=== PATIENT | male | born 1935 | race Caucasian/White ===

== ENCOUNTER → 2017-07-26 | Outpatient (CLI) | payer MEDICARE, BC ==
[~2017-07-26] MED LIST: ACETAMINOPHEN325 M1 PO; ACIDOPHILUS1 EAC3 PO; ACIDOPHILUS1 EAC4 PO; ACIDOPHILUS1 EACH PO; ACLOVATE TP; ADULT LOW DOSE81 MG PO; ALLOPURINOL 30300 M2 PO; AMARYL2 MG PO; AMIODARONE HCL100 MG PO; AMIODARONE HCL400 MG PO; AMLODIPINE BESYL5 MG PO; AMOXICILLIN 50500 MG PO; AMPICILLIN TRI500 MG PO; APAP500 PO; AUGMENTIN 875-1 EACH PO; BACTRIM DS TAB1 EACH PO; BENADRYL25 MG PO; BISAC-EVAC10 MG RC; BISACODYL SUPP10 MG RECTAL; CARDIZEM CD240 MG PO; CEFEPIME HCL2 GM IV; CEFTIN 250 MG250 MG PO; CEFUROXIME500 MG PO; CHILDREN'S ASPI81 M1 PO; CIPRO250 MG PO; CLONIDINE0.1 PO; CLOTRIMAZOLE 1%15 G1 TOP; COLACE100 MG PO; CORDARONE200 MG PO; COUMADIN 1MG TAB1 M1 PO; COUMADIN 2 MG TA2 M1 PO; COUMADIN 3 MG TA3 M1 PO; COUMADIN 4 MG TA4 M1 PO; COUMADIN 5 MG TA5 M1 PO; COZAAR 50 MG TA50 M1 PO; COZAAR 50 MG TA50 M2 PO; COZAAR100 MG PO; DULCOLAX5 MG PO; DUONEB 2.5-0.5 M3 ML INH; FAMOTIDINE 20 M20 MG PO; FLOMAX0.4 MG PO; FLONASE 0.05%50 MCG NASAL; FLUSH IV; FORTAZ2 GM IV; FUROSEMIDE 40 M40 MG PO; HYDROCODONE-AP1 EAC6 PO; HYTRIN 2MG CAPSU2 M1 PO; HYTRIN 5 M5 MG/1 CAP PO; I-VITE PROTECT1 EACH PO; I-VITE TABLET1 EACH PO; IBUPROFEN 200200 M1 PO; IBUPROFEN 600600 M1 PO; JUVEN PACKET1 EACH PO; LEVEMIR SUBQ; LISINOPRIL5 MG PO; LOPRESSOR 50 MG50 M1 PO; LOTRIMIN ULTRA12 GM TOP; MILK OF MA2400 MG/10 PO; MINOCIN100 MG PO; MINOCYCLINE HC100 M2 PO; MIRALAX17 GM PO; MIRALAX255 GM PO; NORCO 5-325 TA1 EACH PO; NORVASC5 MG PO; NOVOLOG100 UNIT/1; NOVOLOG100 UNIT/1 SUBQ; NYAMYC15 GM TOP; NYSTATIN-TRIAMC15 G1 TP; OCUVITE ADULT1 EAC1 PO; OXYCODONE HCL5 M1 PO; PACERONE 200 M200 MG PO; PEPCID20 MG PO; PHENERGAN 25 MG25 M1 PO; PHENERGAN50 MG/1 M1 IM; PREDNISONE 20 M20 MG PO; PRESERVISION PO; PROSCAR 5MG TABL5 MG PO; REGLAN 5 MG TAB5 MG PO; RENO CAPS SOFTGE1 MG PO; ROCEPHIN 11 GM/1001 IV; SENOKOT-S TABL1 EACH PO; SILVADENE20 GM TP; TAMIFLU75 MG PO; TESSALON PERLE100 MG PO; THERAGRAN-M PR1 EAC1 PO; TOPROL XL100 MG PO; TRADJENTA5 MG; TUSSIN DM CLEA118 ML PO; TUSSIN DM COUG237 ML PO; TUSSIN MUC100 MG/5 M PO; TUSSIONEX PENNKI1 ML PO; TYLENOL325 MG PO; VANCO 1.251.25 GM/25 IVPB; VANCO1GM IV; VENELEX OINTMEN60 GM TOP; VITAMIN D1000 UNI1 PO; VITAMIN D31000 UNIT PO; VITAMIN E400 UNIT PO; VITAMINC500 PO; XARELTO20 MG PO; ZINC SULFATE 2220 M1 PO; ZOLOFT50 MG PO; ZOSYN 3/0.373.375 G3 IVPB; [UNRECOGNIZED DRUG - OTHER] TOP; [UNRECOGNIZED DRUG - OTHER] TOP; [UNRECOGNIZED DRUG - REMARK] TOP
--- NOTE | 2017-07-27 09:12 | CON ---
[address] [address] CONSULTATION Name: DORIANKIMBERIVON PABLO Room: [facility] RADHA Owusu#: [id number] Admission: 07/26/17 Attend Phys: Donte Ruiz, Discharge: Date of : 36 Report #: [id number] THIS REPORT FOR: //name// CC: Joseph Ruiz DATE OF SERVICE: 07/26/2017 INFECTIOUS DISEASE CONSULTATION FOLLOWUP The patient is seen in the outpatient wound care center at [facility]. ATTENDING PHYSICIAN: Dr. Donte Ruiz. HISTORY OF PRESENT ILLNESS: The patient returns in followup ongoing issues of chronic severe venous stasis insufficiency ulcers involving the right lower extremity. These are circumferential, all intensive purposes. He has intermittently issues with secondary infections. He says there is a polymicrobial growth often with multiple resistant organisms, including Pseudomonas and most recently, he has been on a combination of Cipro and metronidazole for the last 3 weeks. Clinically, he has improved. He typically does not have significant amount of pain associated with it. This continues to be true. There is no particular odor. Post-debridement, the area is generally pretty clean. There are deep extending into the subcutaneous tissue. On questioning, he denies any fevers or chills. Appetite has been relatively stable. ASSESSMENT AND PLAN: Chronic venous stasis insufficiency ulcers. I did discuss with Dr. Ruiz. With his pattern, antibiotics seem to afford him some benefit and clinically with discontinuing, he often relapses; we will extend these. In the meantime, he is tolerating the combination at this point. It is notable he is on warfarin and this has been accounted for with frequent PT-INRs and adjusted accordingly. We will see him in 2 weeks. <ELECTRONICALLY SIGNED> By: Camilo Lorenzana MD 07/27/17 0912 1317 [id number] Lorenzana MD /nt
== END ==
LOC: M.WC 01:41
DX: E11.622 Type 2 diabetes mellitus with other skin ulcer (principal); L97.811 Non-pressure chronic ulcer of other part of right lower leg limited to breakdown of skin; E11.621 Type 2 diabetes mellitus with foot ulcer; L97.511 Non-pressure chronic ulcer of other part of right foot limited to breakdown of skin; L97.311 Non-pressure chronic ulcer of right ankle limited to breakdown of skin; E11.51 Type 2 diabetes mellitus with diabetic peripheral angiopathy without gangrene; E11.69 Type 2 diabetes mellitus with other specified complication; M86.8X7 Other osteomyelitis, ankle and foot; I87.2 Venous insufficiency (chronic) (peripheral); I89.0 Lymphedema, not elsewhere classified; I11.0 Hypertensive heart disease with heart failure; I50.20 Unspecified systolic (congestive) heart failure; K21.9 Gastro-esophageal reflux disease without esophagitis; I48.91 Unspecified atrial fibrillation; E66.01 Morbid (severe) obesity due to excess calories; Z68.42 Body mass index [BMI] 45.0-49.9, adult; Z89.512 Acquired absence of left leg below knee; Z86.718 Personal history of other venous thrombosis and embolism

== ENCOUNTER 2017-08-16 07:33 | Emergency (ER) | payer MEDICARE, BC ==
[~2017-08-16] VITALS: Ht 195.6 cm; Wt 158.8 kg
[~2017-08-16 07:33] MED LIST changes: -DUONEB 2.5-0.5 M3 ML INH; -FLOMAX0.4 MG PO; -IBUPROFEN 200200 M1 PO; -OCUVITE ADULT1 EAC1 PO; -OXYCODONE HCL5 M1 PO; -PACERONE 200 M200 MG PO; -PHENERGAN 25 MG25 M1 PO; -PREDNISONE 20 M20 MG PO; -REGLAN 5 MG TAB5 MG PO; -TAMIFLU75 MG PO; -TESSALON PERLE100 MG PO; -THERAGRAN-M PR1 EAC1 PO; -TRADJENTA5 MG; -TUSSIN DM COUG237 ML PO; -TUSSIN MUC100 MG/5 M PO; -VENELEX OINTMEN60 GM TOP; -XARELTO20 MG PO; -ZOLOFT50 MG PO; -[UNRECOGNIZED DRUG - OTHER] TOP
[2017-08-16] MEDS ORDERED: TAMIFLU75 MG PO (08:10)
[2017-08-16] MEDS ORDERED: VENELEX OINTMEN60 GM TOP (08:11)
[2017-08-16 08:15] VITALS: BP 130/56
== END 2017-08-16 08:15 | disposition home or self-care (01) ==
LOC: M.ERS 07:33
DX: S71.111A Laceration without foreign body, right thigh, initial encounter (principal); I10 Essential (primary) hypertension; E11.9 Type 2 diabetes mellitus without complications; E78.5 Hyperlipidemia, unspecified; E66.9 Obesity, unspecified; Z98.890 Other specified postprocedural states; Z88.1 Allergy status to other antibiotic agents; X58.XXXA Exposure to other specified factors, initial encounter; Y93.89 Activity, other specified; Y92.128 Other place in nursing home as the place of occurrence of the external cause; Y99.8 Other external cause status

== ENCOUNTER → 2017-08-16 | Outpatient (CLI) | payer MEDICARE, BC ==
[2017-08-16 10:41] LABS: ABSOLUTE BASOPHILS 0.1 thou/uL (0.0-0.2); ABSOLUTE EOSINOPHILS 0.2 thou/uL (0.0-0.7); ABSOLUTE LYMPHOCYTES 0.9 thou/uL (0.8-5.3); ABSOLUTE MONOCYTES 0.6 thou/uL (0.0-1.2); ABSOLUTE NEUTROPHILS 4.7 thou/uL (1.6-8.1); BASOPHILS 1.2 %; EOSINOPHILS 2.9 %; HEMATOCRIT 38.3 % (42.0-52.0); HEMOGLOBIN 12.8 gm/dL (14.0-18.0); LYMPHOCYTES 13.9 %; MCH 32.5 pg (26.0-34.0); MCHC 33.5 g/dL (28.0-37.0); MONOCYTES 8.7 %; MPV 8.7 fl. (7.2-11.1); NUCLEATED RBCS 0 /100WBC; PLATELET COUNT* 196 thou/uL (150-400); POLYS 73.3 %; RBC 3.95 mil/uL (4.50-6.00); RDW-CV 14.9 % (10.5-14.5); WBC 6.4 thou/uL (4.0-11.0)
[2017-08-16 10:48] LABS: CALCIUM 8.5 mg/dL (8.5-10.1); CREATININE 1.2 mg/dL (0.6-1.3); POTASSIUM 3.7 mmol/L (3.5-5.1)
[2017-08-16 10:52] LABS: INR 5.4
[2017-08-16 10:53] LABS: TOTAL BILIRUBIN 0.5 mg/dL (<0.1-1.0); TOTAL PROTEIN 7.1 g/dL (6.4-8.2)
--- NOTE | 2017-08-19 07:50 | CON ---
[address] [address] CONSULTATION Name: IVON SALINAS Room: [facility] RADHA Owusu#: [id number] Admission: 08/16/17 Attend Phys: Donte Ruiz, Discharge: Date of : 36 Report #: [id number] THIS REPORT FOR: //name// CC: Joseph Tim Devi [facility] DATE OF SERVICE: 08/16/2017 ATTENDING PHYSICIAN: Dr. Donte Ruiz. REASON FOR EVALUATION: Chronic ulceration involving the right lower extremities, multifactorial including venous stasis insufficiency, which is severe complicated by dermatitis. Wounds are chronic having been there for almost a year or so. He frequently gets secondary bacterial infections, has been on an extended course of antibiotics for polymicrobial etiology. He presents today having been through the Emergency Room, had developed a laceration of the posterior thigh apparently due to a sliding board. This was unable to be hemostased. On inspection, the wounds appear to be fairly bland. There is no particular odor. There is a mild inflammation at this point. Relatively speaking, it has improved from several visits. Venous stasis insufficiency ulcers. At this point, according to the facility, he is not on any antibiotics. I am concerned about excessive anticoagulation as I do not think this could be attributed to the antibiotics at this point. We will check labs. Continue local wound care, withhold antibiotics at this point. <ELECTRONICALLY SIGNED> By: Camilo Lorenzana MD 08/19/17 0750 1029 [id number] Josh Lorenzana MD /nt
== END ==
LOC: M.WC 01:36
PROVIDERS: Specialist
DX: I87.2 Venous insufficiency (chronic) (peripheral) (principal); L97.511 Non-pressure chronic ulcer of other part of right foot limited to breakdown of skin; L97.811 Non-pressure chronic ulcer of other part of right lower leg limited to breakdown of skin; E11.621 Type 2 diabetes mellitus with foot ulcer; E11.622 Type 2 diabetes mellitus with other skin ulcer; I89.0 Lymphedema, not elsewhere classified; E11.69 Type 2 diabetes mellitus with other specified complication; M86.9 Osteomyelitis, unspecified; M10.9 Gout, unspecified; I50.30 Unspecified diastolic (congestive) heart failure; K21.9 Gastro-esophageal reflux disease without esophagitis; I48.91 Unspecified atrial fibrillation; Z86.718 Personal history of other venous thrombosis and embolism; Z79.01 Long term (current) use of anticoagulants; Z89.512 Acquired absence of left leg below knee

== ENCOUNTER → 2017-08-30 | Outpatient (CLI) | payer MEDICARE, BC ==
[~2017-08-30] MED LIST changes: +DUONEB 2.5-0.5 M3 ML INH; +FLOMAX0.4 MG PO; +IBUPROFEN 200200 M1 PO; +OCUVITE ADULT1 EAC1 PO; +OXYCODONE HCL5 M1 PO; +PACERONE 200 M200 MG PO; +PHENERGAN 25 MG25 M1 PO; +PREDNISONE 20 M20 MG PO; +REGLAN 5 MG TAB5 MG PO; +TAMIFLU75 MG PO; +TESSALON PERLE100 MG PO; +THERAGRAN-M PR1 EAC1 PO; +TRADJENTA5 MG; +TUSSIN DM COUG237 ML PO; +TUSSIN MUC100 MG/5 M PO; +VENELEX OINTMEN60 GM TOP; +XARELTO20 MG PO; +ZOLOFT50 MG PO; +[UNRECOGNIZED DRUG - OTHER] TOP
--- NOTE | 2017-09-02 07:54 | CON ---
[address] [address] CONSULTATION Name: IVON SALINAS Room: [facility] RADHA Owusu#: [id number] Admission: 08/30/17 Attend Phys: Donte Ruiz, Discharge: Date of : 36 Report #: [id number] THIS REPORT FOR: //name// CC: Joseph Ruiz DATE OF SERVICE: 08/30/2017 ATTENDING PHYSICIAN: Dr. Donte Ruiz. HISTORY OF PRESENT ILLNESS: The patient returns today in followup, having ongoing issues with right lower extremity severe venous stasis insufficiency complicated by dermatitis and chronic ulcers that are multiple. He has been on antimicrobial therapy on and off for a number of years. Most recently, I saw him 2 weeks ago. He had a noted odor, had been placed on Augmentin and I continued that. We adjusted his dressing changes with our Resorb. He clinically has improved over the last couple of weeks in terms of how he feels. He denies any systemic illness at this point, his appetite is fair, is not having intolerance to the Augmentin. ASSESSMENT AND PLAN: Chronic venous insufficiency ulcers. We will continue the Augmentin. He seemingly has relapses or recurrences when the antibiotics are stopped. We will see him with his next visit with Dr. Ruiz. There was noticeable improvement and overall decrease in size of at least a couple of the ulcers. <ELECTRONICALLY SIGNED> By: Camilo Lorenzana MD 09/02/17 0754 1319 [id number] Lorenzana MD /pro
== END ==
LOC: M.WC 01:41
DX: E11.621 Type 2 diabetes mellitus with foot ulcer (principal); I87.2 Venous insufficiency (chronic) (peripheral); L97.511 Non-pressure chronic ulcer of other part of right foot limited to breakdown of skin; E11.622 Type 2 diabetes mellitus with other skin ulcer; L97.811 Non-pressure chronic ulcer of other part of right lower leg limited to breakdown of skin; E11.51 Type 2 diabetes mellitus with diabetic peripheral angiopathy without gangrene; E11.69 Type 2 diabetes mellitus with other specified complication; M86.8X7 Other osteomyelitis, ankle and foot; I11.0 Hypertensive heart disease with heart failure; I50.30 Unspecified diastolic (congestive) heart failure; K21.9 Gastro-esophageal reflux disease without esophagitis; I48.91 Unspecified atrial fibrillation; Z86.718 Personal history of other venous thrombosis and embolism; E66.01 Morbid (severe) obesity due to excess calories; Z68.42 Body mass index [BMI] 45.0-49.9, adult; Z89.512 Acquired absence of left leg below knee

== ENCOUNTER → 2017-09-27 | Outpatient (CLI) | payer MEDICARE, BC ==
--- NOTE | 2017-09-30 07:45 | CON ---
[address] [address] CONSULTATION Name: IVON SALINAS Room: [facility] RADHA Owusu#: [id number] Admission: 09/27/17 Attend Phys: Donte Ruiz, Discharge: Date of : 36 Report #: [id number] THIS REPORT FOR: //name// CC: Donte Ruiz DATE OF SERVICE: 09/27/2017 INFECTIOUS DISEASE CONSULTATION ATTENDING PHYSICIAN: Donte Ruiz DO HISTORY OF PRESENT ILLNESS: The patient returns in followup for longstanding issues with lower extremity venous stasis insufficiency ulcers complicated by chronic infection, has dermatitis, has been on multiple courses of systemic antibiotics as well as topical treatments. He generally drains excessive amounts. At this point, he is overall clinically similar. Denies any systemic illness. His appetite is okay. No fevers. Examination of the wounds appear to be quite macerated, some moderate to marked degree of debris and exudate, this is predebridement. ASSESSMENT AND PLAN: Chronic venous stasis insufficiency ulcers. We will continue the Augmentin as prescribed. Again, more of a chronic suppressive treatment modality. We will see him in about a 4-week basis. He will notify us if he has any clinical deterioration. <ELECTRONICALLY SIGNED> By: Camilo Lorenzana MD 09/30/17 0745 1325 [id number] Lorenzana MD /nt
== END ==
LOC: M.WC 01:32
DX: E11.621 Type 2 diabetes mellitus with foot ulcer (principal); L97.511 Non-pressure chronic ulcer of other part of right foot limited to breakdown of skin; I87.2 Venous insufficiency (chronic) (peripheral); E11.622 Type 2 diabetes mellitus with other skin ulcer; L97.811 Non-pressure chronic ulcer of other part of right lower leg limited to breakdown of skin; E11.51 Type 2 diabetes mellitus with diabetic peripheral angiopathy without gangrene; E11.69 Type 2 diabetes mellitus with other specified complication; M86.8X7 Other osteomyelitis, ankle and foot; E66.01 Morbid (severe) obesity due to excess calories; Z68.42 Body mass index [BMI] 45.0-49.9, adult; I11.0 Hypertensive heart disease with heart failure; I50.30 Unspecified diastolic (congestive) heart failure; K21.9 Gastro-esophageal reflux disease without esophagitis; I48.91 Unspecified atrial fibrillation; Z86.718 Personal history of other venous thrombosis and embolism; Z89.512 Acquired absence of left leg below knee

== ENCOUNTER → 2017-10-25 | Outpatient (CLI) | payer MEDICARE, BC ==
--- NOTE | 2017-10-28 07:43 | CON ---
[address] [address] CONSULTATION Name: IVON SALINAS Room: [facility] RAD[facility] Owusu#: [id number] Admission: 10/25/17 Attend Phys: Donte Ruiz, Discharge: Date of : 36 Report #: [id number] THIS REPORT FOR: //name// CC: Cristóbal Ruiz DATE OF SERVICE: 10/25/2017 INFECTIOUS DISEASE CONSULTATION FOLLOWUP ATTENDING PHYSICIAN: Donte Ruiz DO REASON FOR EVALUATION: Chronic ulcerations which are multiple due to severe venous stasis insufficiency of right lower extremity has been ongoing for several years. HISTORY OF PRESENT ILLNESS: The patient returns today in followup. Generally, he feels fine. Denies any systemic illness. Examination of the leg, however, it is clearly more swollen and more erythematous, particularly distally and weeping. It is notable that he is changing the dressing daily due to this excessive drainage. Examination of the wounds appear fairly clean actually, somewhat smaller a couple, otherwise are fairly stable shallower particularly on the medial aspect. It was notably odor per staff to remove the dressing. Dr. Ruiz to debride the wound. ASSESSMENT AND PLAN: Chronic venous stasis insufficiency ulcers, we asked Dr. Ruiz to go ahead and culture the site after debridement. We will continue Augmentin for the moment, adjust therapy as needed. He is critical to somehow obtain better compression. He was willing to perhaps elevate his leg during the day. He states typically using a wheelchair for the entirety of it with his legs down. 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 We will see him back at the next visit with Dr. Ruiz. <ELECTRONICALLY SIGNED> By: Camilo Lorenzana MD 10/28/17 0743 1445 [id number] Lorenzana MD /nt
== END ==
LOC: M.WC 02:08
DX: E11.622 Type 2 diabetes mellitus with other skin ulcer (principal); L97.511 Non-pressure chronic ulcer of other part of right foot limited to breakdown of skin; L97.811 Non-pressure chronic ulcer of other part of right lower leg limited to breakdown of skin; I87.2 Venous insufficiency (chronic) (peripheral); E11.51 Type 2 diabetes mellitus with diabetic peripheral angiopathy without gangrene; E11.69 Type 2 diabetes mellitus with other specified complication; M86.8X7 Other osteomyelitis, ankle and foot; I11.0 Hypertensive heart disease with heart failure; I50.30 Unspecified diastolic (congestive) heart failure; K21.9 Gastro-esophageal reflux disease without esophagitis; I48.91 Unspecified atrial fibrillation; Z86.718 Personal history of other venous thrombosis and embolism; Z89.512 Acquired absence of left leg below knee

== ENCOUNTER 2017-10-28 13:09 | Inpatient (IN) | payer MEDICARE, BC ==
[~2017-10-28] VITALS: Ht 195.6 cm; Wt 184.2 kg
[~2017-10-28 13:09] MED LIST changes: -DUONEB 2.5-0.5 M3 ML INH; -FLOMAX0.4 MG PO; -IBUPROFEN 200200 M1 PO; -OCUVITE ADULT1 EAC1 PO; -OXYCODONE HCL5 M1 PO; -PACERONE 200 M200 MG PO; -PHENERGAN 25 MG25 M1 PO; -PREDNISONE 20 M20 MG PO; -REGLAN 5 MG TAB5 MG PO; -TESSALON PERLE100 MG PO; -THERAGRAN-M PR1 EAC1 PO; -TRADJENTA5 MG; -TUSSIN DM COUG237 ML PO; -TUSSIN MUC100 MG/5 M PO; -XARELTO20 MG PO; -ZOLOFT50 MG PO; -[UNRECOGNIZED DRUG - OTHER] TOP
[2017-10-28 13:22] VITALS: BP 156/55
[2017-10-28 13:59] LABS: HEMATOCRIT 38.9 % (42.0-52.0); HEMOGLOBIN 12.6 gm/dL (14.0-18.0); MCH 32.1 pg (26.0-34.0); MCHC 32.4 g/dL (28.0-37.0); MPV 9.3 fl. (7.2-11.1); NUCLEATED RBCS 0 /100WBC; PLATELET COUNT* 191 thou/uL (150-400); RBC 3.93 mil/uL (4.50-6.00); RDW-CV 16.3 % (10.5-14.5); WBC 14.2 thou/uL (4.0-11.0)
[2017-10-28 14:05] LABS: ANION GAP 6 mmol/L (7-16); BUN 18 mg/dL (7-18); CALCIUM 8.7 mg/dL (8.5-10.1); CHLORIDE 98 mmol/L (98-107); CO2 33 mmol/L (21-32); CREATININE 1.3 mg/dL (0.6-1.3); GLUCOSE 244 mg/dL (70-99); POTASSIUM 4.2 mmol/L (3.5-5.1); SODIUM 137 mmol/L (136-145)
[2017-10-28 14:11] LABS: ALKALINE PHOSPHATASE 69 U/L (46-116); LIPASE 60 U/L (73-393); SGOT 56 U/L (15-37); SGPT 42 U/L (30-65); TOTAL BILIRUBIN 0.6 mg/dL (<0.1-1.0); TOTAL PROTEIN 7.8 g/dL (6.4-8.2); TROPONIN-I LEVEL <0.06 ng/mL (<0.06)
[2017-10-28 14:19] LABS: ABSOLUTE BASOPHILS 0.1 thou/uL (0.0-0.2); ABSOLUTE LYMPHOCYTES 0.9 thou/uL (0.8-5.3); ABSOLUTE MONOCYTES 0.1 thou/uL (0.0-1.2); ABSOLUTE NEUTROPHILS 13.1 thou/uL (1.6-8.1); PLATELET ESTIMATE ADEQUATE
--- NOTE | 2017-10-28 15:30 | EKG ---
[place] [address] ELECTROCARDIOGRAM REPORT Name: IVON SALINAS Room: [facility]#: [id number] Admission: 10/28/17 Attend Phys: Discharge: Date of : 36 Report #: [id number] THIS REPORT FOR: //name// [facility] ED Test Date: 2017-10-28 Test Time: 13:27:39 Pat Name: IVON SALINAS Department: Room: Gender: M Health Economist: Laureano MARTINEZ : 1935 Requested By: Charis Thrasher Order Number: [id number] MD: Arslan Clark Measurements Intervals [place] Rate: 102 P: 0 AR: 126 QRS: 51 QRSD: 123 T: 1 QT: 503 QTc: 656 Interpretive Statements atrial fibrillation IVCD, consider atypical RBBB Baseline wander in lead(s) V3 Compared to ECG 04/11/2017 14:10:47 No significant changes Electronically Signed On 10-28-2017 15:30:47 CDT by Arslan Clark [email or web address] <ELECTRONICALLY SIGNED> By: Arslan Clark MD, [facility] 10/28/17 1530 1327 1327 Arslan Clark MD, [facility] /EPI
[2017-10-28] MEDS ORDERED: VITAMINC500 PO (15:31)
[2017-10-28] MEDS ORDERED: XARELTO20 MG PO (15:32)
[2017-10-28] MEDS ORDERED: AUGMENTIN 875-1 EACH PO (15:32)
[2017-10-28] MEDS ORDERED: TESSALON PERLE100 MG PO (15:32)
[2017-10-28] MEDS ORDERED: DUONEB 2.5-0.5 M3 ML INH (15:33)
[2017-10-28] MEDS ORDERED: TUSSIN MUC100 MG/5 M PO (15:33)
[2017-10-28 19:32] LABS: URINE BILIRUBIN NEGATIVE (Negative); URINE BLOOD NEGATIVE (Negative); URINE CLARITY CLEAR; URINE COLOR STRAW; URINE GLUCOSE-RANDOM NEGATIVE (Negative); URINE KETONES NEGATIVE (Negative); URINE LEUKOCYTES-REFLEX NEGATIVE (Negative); URINE NITRITE-REFLEX NEGATIVE (Negative); URINE PROTEIN NEGATIVE (Negative); URINE UROBILINOGEN 0.2 E.U./dl (0.2-1.0)
[2017-10-28 20:55] VITALS: BP 158/80
[2017-10-29] VITALS: BP 127/59
[2017-10-29 04:00] VITALS: BP 157/62
[2017-10-29 05:12] LABS: HEMATOCRIT 34.9 % (42.0-52.0); HEMOGLOBIN 11.6 gm/dL (14.0-18.0); MCH 32.8 pg (26.0-34.0); MCHC 33.3 g/dL (28.0-37.0); MCV 98.5 fL (80.0-100.0); MPV 9.4 fl. (7.2-11.1); RBC 3.54 mil/uL (4.50-6.00); RDW-CV 15.9 % (10.5-14.5); WBC 11.2 thou/uL (4.0-11.0)
[2017-10-29 05:40] LABS: ALBUMIN 2.5 g/dL (3.4-5.0); CALCIUM 7.9 mg/dL (8.5-10.1); CREATININE 1.3 mg/dL (0.6-1.3); POTASSIUM 4.1 mmol/L (3.5-5.1); TOTAL BILIRUBIN 0.5 mg/dL (<0.1-1.0); TOTAL PROTEIN 6.3 g/dL (6.4-8.2)
[2017-10-29 10:41] VITALS: BP 142/67
[2017-10-29 11:15] VITALS: BP 147/62
[2017-10-29 15:18] VITALS: BP 145/53
[2017-10-29 20:00] VITALS: BP 141/63
[2017-10-30] VITALS: BP 136/50
[2017-10-30 04:00] VITALS: BP 143/48
[2017-10-30 05:02] LABS: ABSOLUTE EOSINOPHILS 0.2 thou/uL (0.0-0.7); ABSOLUTE LYMPHOCYTES 0.8 thou/uL (0.8-5.3); ABSOLUTE MONOCYTES 0.7 thou/uL (0.0-1.2); ABSOLUTE NEUTROPHILS 5.1 thou/uL (1.6-8.1); BASOPHILS 0.7 %; EOSINOPHILS 3.6 %; HEMATOCRIT 34.8 % (42.0-52.0); HEMOGLOBIN 11.7 gm/dL (14.0-18.0); LYMPHOCYTES 11.5 %; MCH 33.1 pg (26.0-34.0); MCHC 33.6 g/dL (28.0-37.0); MCV 98.6 fL (80.0-100.0); MONOCYTES 10.2 %; MPV 9.3 fl. (7.2-11.1); NUCLEATED RBCS 0 /100WBC; PLATELET COUNT* 149 thou/uL (150-400); RBC 3.53 mil/uL (4.50-6.00); WBC 6.9 thou/uL (4.0-11.0)
[2017-10-30 05:10] LABS: ALBUMIN 2.3 g/dL (3.4-5.0); CALCIUM 8.3 mg/dL (8.5-10.1); CREATININE 1.2 mg/dL (0.6-1.3); POTASSIUM 4.9 mmol/L (3.5-5.1); TOTAL BILIRUBIN 0.3 mg/dL (<0.1-1.0); TOTAL PROTEIN 6.7 g/dL (6.4-8.2)
[2017-10-30 08:00] VITALS: BP 138/60
--- NOTE | 2017-10-30 12:32 | CON ---
[address] [address] CONSULTATION Name: BRADIVONJERROD SHAH Room: [address] ADM IN M.R.#: [id number] Admission: 10/28/17 Attend Phys: Brandon Rosas Discharge: Date of : 36 Report #: [id number] THIS REPORT FOR: //name// CC: Joseph Bacon DATE OF SERVICE: 10/29/2017 ATTENDING PHYSICIAN: Marito Bacon DO. REASON FOR EVALUATION: Pneumonitis. HISTORY OF PRESENT ILLNESS: Chart reviewed, patient examined. This 82-year-old whom I am very familiar with longstanding issues with venous stasis insufficiency, ulcers of the lower extremity complicated with general dermatitis. He is post below-knee amputation on the left, followed on a routine basis in the wound care center. He was admitted to the Emergency Room with complaints of somewhat acute onset of chills, did have associated nausea with emesis, some progressive dyspnea as well. He stated he had one brief episode of coughing, was found to have low-grade temperature elevation. Initial chest x-ray showed bilateral basilar infiltrates, cardiomegaly. CT imaging of the abdomen and pelvis showed no intra-abdominal inflammatory process, focal, suggestive of a pyogenic infection. Lactic acid was elevated at 3.4; on repeat, it was down to 2.1. Blood cultures are sterile thus far. He was empirically started on ceftriaxone and azithromycin. Of note, recent wound cultures had polymicrobial growth including Morganella, Pseudomonas and Providencia. He is moderately resistant. He is not encephalopathic at this point. ALLERGIES: BACTRIM. CURRENT MEDICATIONS: Include azithromycin, ceftriaxone, ipratropium and albuterol inhaler. PAST MEDICAL HISTORY: History of hypertension, gout, pancreatitis, previous osteomyelitis in lower extremity with left BKA in 2009, diabetes mellitus, previous cholecystectomy, hyperlipidemia, BPH. SOCIAL HISTORY: Nonsmoker, no ethanol. FAMILY HISTORY: Noncontributory. REVIEW OF SYSTEMS: As above. PHYSICAL EXAMINATION: GENERAL: He is chronically ill appearing. He is pleasant and cooperative. He is not encephalopathic, [place] [address] CONSULTATION Name: IVON SALINAS Room: [address]#: [id number] Admission: 10/28/17 Attend Phys: Brandon Rosas Discharge: Date of : 36 Report #: [id number] VITAL SIGNS: Temperature 99.4, pulse 93, respirations 22, blood pressure is 157/62. SKIN: Warm, dry. HEENT: Unremarkable. NECK: Supple. LUNGS: Scattered coarse breath sounds. HEART: Regular. Borderline tachycardic. I do not appreciate murmur. ABDOMEN: Soft, obese, nontender. There are no peritoneal signs. GENITOURINARY: Deferred. RECTAL: Deferred. LABORATORY DATA: Blood cultures sterile thus far. Initial electrolytes: Sodium 137, potassium 4.2, chloride 98, bicarbonate is 33, BUN and creatinine 18 and 1.3, glucose of 244. AST 56, ALT of 42, albumin of 3, total protein 7.8. Estimated GFR 53. Lactic acid as noted above 3.4, repeat 2.8 and 2.1. Blood cultures sterile thus far. CBC: White count of 14.2, it is down to 11, H and H 12.6 and 38.9, platelets of 191. ASSESSMENT: Pneumonitis. The patient is certainly at risk for infectious complications. He lives in a facility. I would be somewhat concerned about more resistant organisms at this point. We will broaden spectrum to include gram-negative coverage. We will continue wound care as prescribed. Await results. <ELECTRONICALLY SIGNED> By: Camilo Lorenzana MD 10/30/17 1232 1023 [id number] Lorenzana MD /nt
[2017-10-30 15:29] VITALS: BP 118/45
[2017-10-30 20:00] VITALS: BP 153/66
[2017-10-31] VITALS: BP 145/53
[2017-10-31 05:19] LABS: HEMATOCRIT 33.8 % (42.0-52.0); HEMOGLOBIN 11.1 gm/dL (14.0-18.0); MCH 32.8 pg (26.0-34.0); MCHC 32.9 g/dL (28.0-37.0); MCV 99.9 fL (80.0-100.0); MPV 9.3 fl. (7.2-11.1); RBC 3.38 mil/uL (4.50-6.00); RDW-CV 15.9 % (10.5-14.5); WBC 8.2 thou/uL (4.0-11.0)
[2017-10-31 06:08] LABS: ALBUMIN 2.2 g/dL (3.4-5.0); CALCIUM 8.1 mg/dL (8.5-10.1); CREATININE 1.3 mg/dL (0.6-1.3); POTASSIUM 3.9 mmol/L (3.5-5.1); TOTAL BILIRUBIN 0.5 mg/dL (<0.1-1.0); TOTAL PROTEIN 6.5 g/dL (6.4-8.2)
[2017-10-31 08:00] VITALS: BP 117/66
[2017-10-31 16:00] VITALS: BP 125/55
[2017-10-31 20:00] VITALS: BP 131/49
[2017-11-01] VITALS: BP 110/43
[2017-11-01 04:00] VITALS: BP 125/46
[2017-11-01 07:55] VITALS: BP 132/107
[2017-11-01 11:41] VITALS: BP 120/56
[2017-11-01 16:00] VITALS: BP 144/72
[2017-11-01 20:00] VITALS: BP 138/52
[2017-11-02] VITALS: BP 123/46
[2017-11-02 08:00] VITALS: BP 135/54
[2017-11-02 08:40] VITALS: BP 135/54
[2017-11-02 09:03] LABS: HEMATOCRIT 33.4 % (42.0-52.0); MCH 32.3 pg (26.0-34.0); MPV 9.2 fl. (7.2-11.1); NUCLEATED RBCS 0 /100WBC; PLATELET COUNT* 179 thou/uL (150-400); RBC 3.41 mil/uL (4.50-6.00); RDW-CV 15.8 % (10.5-14.5); WBC 6.6 thou/uL (4.0-11.0)
[2017-11-02 09:16] LABS: ALBUMIN 2.1 g/dL (3.4-5.0); CALCIUM 8.4 mg/dL (8.5-10.1); CREATININE 1.9 mg/dL (0.6-1.3); POTASSIUM 4.1 mmol/L (3.5-5.1); TOTAL BILIRUBIN 0.4 mg/dL (<0.1-1.0); TOTAL PROTEIN 6.7 g/dL (6.4-8.2)
[2017-11-02 09:35] LABS: ABSOLUTE EOSINOPHILS 0.2 thou/uL (0.0-0.7); ABSOLUTE LYMPHOCYTES 0.7 thou/uL (0.8-5.3); ABSOLUTE MONOCYTES 0.5 thou/uL (0.0-1.2); ABSOLUTE NEUTROPHILS 5.2 thou/uL (1.6-8.1)
[2017-11-02 09:36] LABS: HYPOCHROMASIA 1+; PLATELET ESTIMATE ADEQUATE
[2017-11-02 16:00] VITALS: BP 105/48
[2017-11-03] VITALS: BP 140/63
[2017-11-03 08:20] VITALS: BP 125/76
[2017-11-03 15:35] VITALS: BP 120/63
[2017-11-03 20:00] VITALS: BP 147/69
[2017-11-04 00:07] VITALS: BP 109/46
[2017-11-04 08:00] VITALS: BP 137/61
[2017-11-04 15:05] VITALS: BP 137/61
== END 2017-11-04 16:30 | DRG 871 ==
LOC: M.ERS 13:09 → M.2W 16:32 → M.TBA-ER 16:32 → M.2W 20:55
PROVIDERS: Emergency Medicine Emergency Medical Services; Physician Assistant; ADMIT Internal Medicine
DX: A41.9 Sepsis, unspecified organism (principal); J18.9 Pneumonia, unspecified organism; L03.90 Cellulitis, unspecified; L97.919 Non-pressure chronic ulcer of unspecified part of right lower leg with unspecified severity; Z68.42 Body mass index [BMI] 45.0-49.9, adult; R65.20 Severe sepsis without septic shock; M10.9 Gout, unspecified; B95.62 Methicillin resistant Staphylococcus aureus infection as the cause of diseases classified elsewhere; I10 Essential (primary) hypertension; E78.5 Hyperlipidemia, unspecified; N40.0 Benign prostatic hyperplasia without lower urinary tract symptoms; E66.9 Obesity, unspecified; K43.9 Ventral hernia without obstruction or gangrene; E11.65 Type 2 diabetes mellitus with hyperglycemia; I87.8 Other specified disorders of veins; B96.5 Pseudomonas (aeruginosa) (mallei) (pseudomallei) as the cause of diseases classified elsewhere; Z88.2 Allergy status to sulfonamides; Z89.512 Acquired absence of left leg below knee; Z88.8 Allergy status to other drugs, medicaments and biological substances; Z79.899 Other long term (current) drug therapy; Z79.82 Long term (current) use of aspirin; Z90.49 Acquired absence of other specified parts of digestive tract; Z98.42 Cataract extraction status, left eye; Z98.41 Cataract extraction status, right eye; Z88.1 Allergy status to other antibiotic agents

== ENCOUNTER 2017-11-16 15:50 | Inpatient (IN) | payer MEDICARE, BC ==
[~2017-11-16] VITALS: Ht 195.6 cm; Wt 171.0 kg
[~2017-11-16 15:50] MED LIST changes: +DUONEB 2.5-0.5 M3 ML INH; +TESSALON PERLE100 MG PO; +TUSSIN MUC100 MG/5 M PO; +XARELTO20 MG PO
[2017-11-16 15:51] VITALS: BP 136/53
[2017-11-16] MEDS ORDERED: TUSSIN DM COUG237 ML PO (16:16)
[2017-11-16] MEDS ORDERED: ZOLOFT50 MG PO (16:17)
[2017-11-16] MEDS ORDERED: [UNRECOGNIZED DRUG - OTHER] TOP (16:20)
[2017-11-16 16:39] LABS: CALCIUM 8.4 mg/dL (8.5-10.1); POTASSIUM 4.1 mmol/L (3.5-5.1)
[2017-11-16 16:40] LABS: ABSOLUTE BASOPHILS 0.1 thou/uL (0.0-0.2); ABSOLUTE EOSINOPHILS 0.3 thou/uL (0.0-0.7); ABSOLUTE LYMPHOCYTES 0.8 thou/uL (0.8-5.3); ABSOLUTE MONOCYTES 0.5 thou/uL (0.0-1.2); BASOPHILS 1.2 %; EOSINOPHILS 6.1 %; HEMOGLOBIN 11.3 gm/dL (14.0-18.0); MCHC 33.1 g/dL (28.0-37.0); MCV 96.7 fL (80.0-100.0); MONOCYTES 10.2 %; MPV 8.6 fl. (7.2-11.1); NUCLEATED RBCS 0 /100WBC; PLATELET COUNT* 208 thou/uL (150-400); POLYS 65.5 %; RBC 3.51 mil/uL (4.50-6.00); RDW-CV 16.5 % (10.5-14.5); WBC 4.6 thou/uL (4.0-11.0)
[2017-11-16 16:44] LABS: ALBUMIN 2.6 g/dL (3.4-5.0); TOTAL BILIRUBIN 0.3 mg/dL (<0.1-1.0); TOTAL PROTEIN 7.3 g/dL (6.4-8.2)
[2017-11-16 17:33] LABS: URINE BILIRUBIN NEGATIVE (Negative); URINE BLOOD NEGATIVE (Negative); URINE CLARITY CLEAR; URINE COLOR YELLOW; URINE GLUCOSE-RANDOM NEGATIVE (Negative); URINE KETONES NEGATIVE (Negative); URINE LEUKOCYTES-REFLEX NEGATIVE (Negative); URINE NITRITE-REFLEX NEGATIVE (Negative); URINE PROTEIN NEGATIVE (Negative); URINE UROBILINOGEN 0.2 E.U./dl (0.2-1.0)
[2017-11-16 17:57] LABS: APTT 36.1 Seconds (25.0-31.3); INR 1.2; PROTIME 11.6 Seconds (9.20-11.50)
[2017-11-16 20:01] VITALS: BP 157/72
[2017-11-17 00:14] VITALS: BP 129/58
[2017-11-17 03:50] LABS: HEMATOCRIT 31.3 % (42.0-52.0); HEMOGLOBIN 10.2 gm/dL (14.0-18.0); MCHC 32.4 g/dL (28.0-37.0); MCV 98.6 fL (80.0-100.0); MPV 8.3 fl. (7.2-11.1); RBC 3.18 mil/uL (4.50-6.00); RDW-CV 16.1 % (10.5-14.5)
[2017-11-17 04:53] LABS: ALBUMIN 2.4 g/dL (3.4-5.0); CALCIUM 7.6 mg/dL (8.5-10.1); CREATININE 2.9 mg/dL (0.6-1.3); MAGNESIUM 2.2 mg/dL (1.8-2.4); TOTAL BILIRUBIN 0.4 mg/dL (<0.1-1.0); TOTAL PROTEIN 6.1 g/dL (6.4-8.2)
--- NOTE | 2017-11-17 05:34 | NUR ---
ASSESSMENT COMPLETE. PT ADMITTED WITH RLE WOUNDS/CELLULITIS. VASCULAR, INFECTIOUS DISEASE, AND WOUND CARE CONSULTED FOR SATURDAY. PICTURES TAKEN OF WOUNDS AND DRESSING CHANGED. DRESSINGS C/D/I. IV VANC GIVEN. PT IS ON 2L PER NC, BLOOD PRESSURE STABLE. PT IS INCONT AT TIMES, OR USES URINAL. PT HAS IV FLUIDS INFUSING. PT IS Q2 TURN. BED ALARM ON. SEE ASSESSMENT AND VITALS FOR OTHER DETAILS. CALL LIGHT WITHIN REACH, WILL CONTINUE PLAN OF CARE
[2017-11-17 11:48] VITALS: BP 139/62
[2017-11-17 16:00] VITALS: BP 131/60
--- NOTE | 2017-11-17 18:12 | NUR ---
PATIENT HAS BEEN ALERT AND ORIENTED TODAY, PATIENT DOES NOT FEEL WELL TODAY. COMPLAINS OF PAIN THAT IS CONTROLLED WITH ORAL PAIN MEDS. VITAL SIGNS STABLE, WEARS 2 LITERS OF OXYGEN THROUGH NASAL CANNULA. POSITION CHANGE EVERY TWO HOURS. CALL LIGHT IS IN REACH, WILL CONTINUE TO MONITOR.
[2017-11-17 23:42] VITALS: BP 121/53
--- NOTE | 2017-11-18 05:03 | NUR ---
ASSESSMENT COMPLETE. PT SLEPT THROUGH THE NIGHT WITHOUT ANY CONCERNS. PT DENIES NEED FOR PAIN MEDICATION. PT DENIES N/V. PT IS SOA, QID BREATHING TX ORDERED. DRESSING TO RLE CHANGED PER DR ORDERS. IV ABX GIVEN SCHEDULED. BLOOD PRESSURE MEDS HELD AT HS DUE TO LOW PULSE. PT IS ON 2L PER NC WITH ADEQUATE SATS. PT USES URINAL NEEDED. IV FLUIDS INFUSING. PT Q2 TURN. SEE ASSESSMENT AND VITALS FOR OTHER DETAILS. CALL LIGHT WITHIN REACH, WILL CONTINUE PLAN OF CARE
[2017-11-18 05:58] LABS: CREATININE 2.7 mg/dL (0.6-1.3); POTASSIUM 4.2 mmol/L (3.5-5.1)
[2017-11-18 08:20] VITALS: BP 117/60
--- NOTE | 2017-11-18 12:31 | NUR ---
WOUND CARE NOTE: CONSULT RECEIVED FOR RLE WOUNDS PATIENT WELL KNOWN TO ME FROM PREVIOUS HOSPITAL STAYS. HAS BEEN FIGHTING CHRONIC RIGHT LOWER EXTREMITY VENOUS STASIS ULCERATIONS. RIGHT MEDIAL LEG: VENOUS STASIS ULCER MEASURING 4X13X0.5. CLEANSED WOUND WITH SOAP AND WATER, ABLE TO REMOVE SOME YELLOW FILM REVEALING A MOIST, PINK WOUND BED. SMALL AMOUNTS OF SEROSANGUINEOUS DRAINAGE NOTED. TODD-WOUND WITH SOME MACERATION TO THE POSTERIOR SURFACE OF THE WOUND. APPLIED IODOSORB GEL AND COVERED WITH ABD. SECURED WITH 4-LAYER WRAP. RIGHT MEDIAL ANKLE: VENOUS STASIS ULCER MEASURING 7.5X4X1. CLEANSED WOUND WITH SOAP AND WATER, ABLE TO REMOVE SOME YELLOW FILM REVEALING A MOIST, PINK WOUND BED. SMALL AMOUNTS OF SEROSANGUINEOUS DRAINAGE NOTED. TODD-WOUND THICKENED. APPLIED IODOSORB GEL AND COVERED WITH ABD. SECURED WITH 4-LAYER WRAP. RIGHT LATERAL ANKLE: VENOUS STASIS ULCER MEASURING 6.5X15X1. CLEANSED WOUND WITH SOAP AND WATER, ABLE TO REMOVE SOME YELLOW FILM REVEALING A MOIST, PINK WOUND BED. SMALL AMOUNTS OF SEROSANGUINEOUS DRAINAGE NOTED. TODD-WOUND THICKENED, WITH SOME MACERATION. APPLIED IODOSORB GEL AND COVERED WITH ABD. SECURED WITH 4-LAYER WRAP. RIGHT LATERAL LEG: PARTIAL THICKNESS ULCERATION MEASURING 6.5X2.5X0.1. CLEANSED WOUND WITH SOAP AND WATER. MOIST, PURPLE, YELLOW WOUND BED. APPLIED IODOSORB GEL AND COVERED WITH ABD. SECURED WITH 4-LAYER WRAP. RIGHT HEEL: PURPLE DISCOLORATION, BELIEVE EVOLVING DEEP TISSUE INJURY. WOUND MEASURES 2.5X3, NO OPENING NOTED. GROIN, SACRUM, SCROTUM, BUTTOCKS: APPEARS TO HAVE CANDIDIA/FUNGAL RASH. AREA IS RED WITH MULTIPLE AREAS OF PARTIAL THICKNESS OPEN WOUNDS. THE WOUND BEDS ARE PALE. PATIENT DOES HAVE SATELITE LESIONS TO BILATERAL BUTTOCKS. AREA WAS CLEANSED AND PLACED BARRIER OINTMENT WITH ANTIFUNGAL. EDUCATED PATIENT ON FINDINGS. EDUCATED PATIENT THAT HIS HEEL NEEDED TO STAY OFF THE BED TO PREVENT ANY FURTHER BREAKDOWN, COMMUNICATED UNDERSTANDING AND ALLOWED HIS FOOT TO BE FLOATED OFF THE BED WITH PILLOWS. PATIENT WAS TURNED TO LEFT SIDE, EDUCATED PATIENT ON IMPORTANCE OF STAYING OFF OF HIS BOTTOM, COMMUNICATED UNDERSTANDING. PATIENT DOES NOT LIKE BEING ON SIDES, PREFERS BACK. PATIENT UNABLE TO TURN EFFECTIVELY IN CURRENT HOSPITAL BED, EDUCATED PATIENT ON NEED FOR A DIFFERENT BED, STATED WHATEVER YOU THINK, [place]. BELIEVE PATIENT WOULD BENEFIT FROM NOE BARRIATRIC MATTRESS WITH TRAPEZE. RECOMMEND TURN Q2 HOURS HOB <30 DEGREES IF PATIENT CAN TOLERATE ELEVATE RIGHT HEEL OFF BED ENCOURAGE GOOD NUTRITION AND HYDRATION TIGHT BLOOD GLUCOSE CONTROL
--- NOTE | 2017-11-18 15:17 | NUR ---
PT.KNOWN FROM PREVIOUS HOSPITALIZATIONS. HE IS A LTC RESIDENT AT [facility]. HE HAS HX OF LBKA AND CHRONIC VENOUS STASIS ULCERS ON RIGHT LEG. HE USES A WC FOR MOBILITY. SPOKE WITH SKINNY/LUCAS AT [facility]. SHE SAID THEY HAVE BEEN SKILLING HIM FOR ABOUT A WEEK AT [facility]. HE WILL RETURN TO A SNF BED FOR HIS WOUND CARE AT DISCHARGE.
[2017-11-18 16:00] VITALS: BP 168/66
--- NOTE | 2017-11-18 18:17 | NUR ---
PATIENT IS ALERT AND ORIENTED TODAY VERY PLEASANT. VITAL SIGNS HAVE BEEN STABLE ON 2 LITERS THROUGH NASAL CANNULA, PATIENTS LEG WAS WRAPPED AND DRESSED BY WOUND NURSE TODAY, PATIENT IS NOW ON A BARIATRIC BED LOW AIR LOSS BED WITH TRAPEZE AND SLIDER SHEET. CALL LIGHT IS IN REACH, FAMILY AT BEDSIDE TODAY. WILL CONTINUE TO MONITOR.
[2017-11-19 00:21] VITALS: BP 131/58
[2017-11-19 03:07] LABS: GLYCOHEMOGLOBIN (HGB A1C) 8.7 % (4.8-5.6)
[2017-11-19 04:27] LABS: HEMATOCRIT 33.7 % (42.0-52.0); HEMOGLOBIN 10.9 gm/dL (14.0-18.0); MCH 31.7 pg (26.0-34.0); MCHC 32.4 g/dL (28.0-37.0); MCV 97.9 fL (80.0-100.0); MPV 8.6 fl. (7.2-11.1); RBC 3.44 mil/uL (4.50-6.00); RDW-CV 15.8 % (10.5-14.5); WBC 4.1 thou/uL (4.0-11.0)
[2017-11-19 04:37] LABS: ALBUMIN 2.4 g/dL (3.4-5.0); CALCIUM 8.4 mg/dL (8.5-10.1); CREATININE 2.6 mg/dL (0.6-1.3); MAGNESIUM 2.6 mg/dL (1.8-2.4); TOTAL BILIRUBIN 0.3 mg/dL (<0.1-1.0); TOTAL PROTEIN 7.1 g/dL (6.4-8.2)
[2017-11-19 04:40] LABS: ALBUMIN 2.5 g/dL (3.4-5.0); CALCIUM 8.3 mg/dL (8.5-10.1); CREATININE 2.6 mg/dL (0.6-1.3); PHOSPHORUS* 4.5 mg/dL (2.5-4.9); POTASSIUM 5.3 mmol/L (3.5-5.1)
--- NOTE | 2017-11-19 07:32 | NUR ---
PATIENT SLEPT MOST OF THE NIGHT. IV REMAINS SALINE LOCKED. PATIENT WAS GIVEN PAIN MEDICINE ONCE THIS SHIFT. PATIENT REFUSED TO TURN A FEW TIMES BUT DID TURN A COUPLE OF TIMES. DRESSING TO RIGHT LEG REMAINS INTACT. WILL CONTINUE TO MONITOR.
[2017-11-19 09:10] VITALS: BP 131/48
[2017-11-19 16:00] VITALS: BP 148/66
--- NOTE | 2017-11-19 16:05 | NUR ---
PATIENT BLADDER SCANNED PER NEPHROLOGY THIS AM, 496MLS NOTED IN BLADDER AND PATIENT UNABLE TO VOID. ARAUJO CATH PLACED PER ORDERS AND FLOMAX STARTED AND GIVEN PER MAR. PATIENT REFUSING TO TURN MOST OF THE SHIFT, EDUCATION GIVEN. IV SL, SCHED ABX REMAIN. POOR APPETITE. LOW DOSE SLIDING SCALE INSULIN STARTED THIS SHIFT FOR ELEVATED BLOOD SUGAR. PATIENT HAD LARGE BM PER BEDPAN THIS SHIFT.
--- NOTE | 2017-11-19 18:32 | NUR ---
TOOK OVER CARE OF PATIENT AT 1600, AGREE WITH PREVIOUS NURSES ASSESSMENT. CALL LIGHT IS IN REACH, BARIATRIC BED PROVIDED. PATIENT REFUSES TO TURN MOST OF THE TIME. FAMILY IS AT BEDSIDE THIS EVENING. WILL CONTINUE TO MONITOR.
[2017-11-19 21:29] VITALS: BP 89/53
[2017-11-19 21:53] VITALS: BP 137/62
[2017-11-20 04:23] LABS: HEMATOCRIT 32.8 % (42.0-52.0); HEMOGLOBIN 10.8 gm/dL (14.0-18.0); MCH 31.9 pg (26.0-34.0); MCHC 32.8 g/dL (28.0-37.0); MCV 97.2 fL (80.0-100.0); MPV 9.1 fl. (7.2-11.1); RBC 3.37 mil/uL (4.50-6.00); RDW-CV 15.7 % (10.5-14.5); WBC 5.8 thou/uL (4.0-11.0)
[2017-11-20 04:59] LABS: CALCIUM 8.1 mg/dL (8.5-10.1); CREATININE 2.4 mg/dL (0.6-1.3); MAGNESIUM 2.7 mg/dL (1.8-2.4); POTASSIUM 4.8 mmol/L (3.5-5.1)
--- NOTE | 2017-11-20 07:23 | NUR ---
PATIENT SLEPT MOST OF THE NIGHT. PATIENT WAS TURNED ABOUT EVERY TWO HOURS. PATIENT HAD NO COMPLAINTS OF PAIN. DRESSINGS TO RIGHT LEG REMAIN INTACT. PATIENT WAS GIVEN PAIN MEDICINE ONCE WITH GOOD RELIEF. WILL CONTINUE TO MONITOR.
[2017-11-20 07:55] VITALS: BP 144/55
[2017-11-20 18:06] VITALS: BP 133/64
--- NOTE | 2017-11-20 18:13 | NUR ---
PATIENT RESTING IN BED. PATIENT DENIES ANY PAIN. PATIENT HAS GOOD APPETITE. PATIENT SEEN BY WOUND CARE NURSE THIS AM AND HAD 4-LAYER LEG WRAPS CHANGED. PATIENT DENIES ANY NEEDS AT THIS TIME. CALL LIGHT WITHIN REACH. WILL CONTINUE TO MONITOR.
[2017-11-21 00:06] VITALS: BP 112/43
--- NOTE | 2017-11-21 06:24 | NUR ---
PATIENT SLEPT MOST OF THE NIGHT. IV REMAINS SALINE LOCKED. PATIENT WAS GIVEN PAIN MEDICINE ONCE WITH GOOD RELIEF. ARAUJO REMAINS TO DEPENDENT DRAIN. PATIENT REFUSED TO TURN MOST OF THE NIGHT. WILL CONTINUE TO MONITOR.
--- NOTE | 2017-11-21 09:42 | CON ---
[address] [address] CONSULTATION Name: IVON SALINAS PABLO Room: [address] IN M.R.#: [id number] Admission: 11/16/17 Attend Phys: Tyshawn Ross, Discharge: Date of : 36 Report #: [id number] THIS REPORT FOR: //name// CC: Joseph Ross REASON FOR CONSULTATION: Acute kidney injury. CONSULTING PHYSICIAN: Tyshawn Ross M.D. HISTORY OF PRESENT ILLNESS: An 82-year-old gentleman who was admitted on 11/16/2017 with nonhealing wounds of his right lower leg. Vascular Surgery and Infectious Disease have both been following. He is currently on antibiotics. Vascular Surgery has recommended an epral-cuu-ubvi amputation, but the patient is not willing to proceed with that. He was admitted with a serum creatinine of 3. He was receiving ibuprofen, losartan and Lasix. Currently, he has no complaints. Those medications have been stopped. He last saw me in the office in 06/2016 and his creatinine was down to around 1.1 at that time and he was recommended to follow up on an as needed basis. REVIEW OF SYSTEMS: Constitutional, psych, heme, eyes, ENT, respiratory, cardiac, GI, , endocrine all negative except as documented above. PAST MEDICAL HISTORY: Chronic kidney disease stage 3, diabetes type 2, history of right leg deep venous thrombosis, hypertension, history of hyperuricemia, there is mention of gout as well, left BKA in 2008, history of benign prostatic hypertrophy. FAMILY HISTORY: Mother had Crohn's. SOCIAL HISTORY: No tobacco. CURRENT MEDICATIONS: Reviewed. PHYSICAL EXAMINATION: VITAL SIGNS: Blood pressure 117/60, pulse 50, temperature 36.5. GENERAL: No acute distress. EYES: Extraocular movements intact. EARS: Externally normal. CARDIOVASCULAR: Regular rate. LUNGS: No crackles. ABDOMEN: Soft. LYMPHATICS: He has a left BKA. NEUROLOGIC: Awake, alert. LABORATORY DATA: Sodium 140, potassium 4.2, chloride 104, bicarbonate 29, BUN 36, creatinine 2.7, glucose 120. Yesterday's white cell count 5, hemoglobin [facility] [address] [place] [address] CONSULTATION Name: IVON SALINAS Room: [address] IN [facility]#: [id number] Admission: 11/16/17 Attend Phys: Tyshawn Ross, Discharge: Date of : 36 Report #: [id number] 10.2, and platelets 170. ASSESSMENT: 1. Acute kidney injury in the setting of right lower extremity wounds while on losartan, Lasix, and ibuprofen with an admission creatinine of 3. UA was okay. CT scan from 10/2017 showed some mild bilateral renal atrophy and cortical thinning. On 10/31/2017, creatinine was 1.3, post admit creatinine was 1.9. 2. Chronic kidney disease stage 3. Baseline creatinine appears to be around 1.3-1.5. In 06/2016, when I last saw him in the office, his creatinine was 1.1 and his urine protein to creatinine ratio was 130. 3. Hypoalbuminemia with albumin of 2.4. 4. Left lower extremity wounds. 5. Diabetes. 6. Benign prostatic hypertrophy. 7. Hypertension. PLAN: 1. Continue IV fluids. Renal function is improving. He has good urine output. 2. Cautioned on vancomycin use and trough level has been ordered. We will check labs again in the a.m. Thank you for requesting my opinion in the care and management of this patient. <ELECTRONICALLY SIGNED> By: Wen Reilly MD 11/21/17 0942 1109 [id number] Reilly MD /nt
[2017-11-21 09:45] LABS: CALCIUM 8.4 mg/dL (8.5-10.1); CREATININE 2.3 mg/dL (0.6-1.3); POTASSIUM 4.7 mmol/L (3.5-5.1)
[2017-11-21 16:58] VITALS: BP 141/61
--- NOTE | 2017-11-21 17:34 | NUR ---
PATIENT IS ALERT AND ORIENTED TODAY VERY PLEASANT. UP IN THE CHAIR MOST OF THE AFTERNOON, PATIENT LIKES THAT BETTER. VITAL SIGNS HAVE BEEN STABLE ON 2 LITERS OF OXYGEN. CALL LIGHT IS IN REACH. WILL CONTINUE TO MONITOR.
[2017-11-22 00:12] VITALS: BP 121/51
--- NOTE | 2017-11-22 05:27 | NUR ---
ASSESSMENT COMPLETE. PT SLEPT THROUGH THE NIGHT WITHOUT ANY CONCERNS. PRN PAIN MEDICATION GIVEN ONCE. DRESSING TO RIGHT LEG C/D/I. DRESSING CHANGES ON // WITH WOUND NURSE. PT SLEPT IN CHAIR AND REFUSED TO GET IN BED. PT IS ON 2L PER NC WITH ADEQUATE SATS. PT HAS ARAUJO IN PLACE WITH [place] OUTPUT. PT HAS IV IN RIGHT FOREARM, SALINE LOCKED. PT HAS NO OTHER CONCERNS AT THIS TIME. SEE ASSESSMENT AND VITALS FOR OTHER DETAILS. CALL LIGHT WITHIN REACH, WILL CONTINUE PLAN OF CARE
[2017-11-22 06:10] LABS: HEMOGLOBIN 10.9 gm/dL (14.0-18.0); MCH 31.7 pg (26.0-34.0); MCV 99.2 fL (80.0-100.0); MPV 9.2 fl. (7.2-11.1); RBC 3.43 mil/uL (4.50-6.00); RDW-CV 15.8 % (10.5-14.5); WBC 6.1 thou/uL (4.0-11.0)
[2017-11-22 06:19] LABS: ALBUMIN 2.6 g/dL (3.4-5.0); CALCIUM 8.5 mg/dL (8.5-10.1); CREATININE 2.2 mg/dL (0.6-1.3); POTASSIUM 4.8 mmol/L (3.5-5.1); TOTAL BILIRUBIN 0.3 mg/dL (<0.1-1.0); TOTAL PROTEIN 7.1 g/dL (6.4-8.2)
[2017-11-22 08:00] VITALS: BP 128/64
--- NOTE | 2017-11-22 16:17 | NUR ---
NO DISCHARGE PLANNED FOR TODAY. STILL AWAITING WOUND CX RESULTS AND ID'S DIRECTION OF WHICH ANTIBIOTIC PT.TO DISCHARGE ON. PT.TO GO TO A SNF BED AT [facility] AT DISCHARGE. HE CONTINUES TO REFUSE AMPUTATION RLE.
--- NOTE | 2017-11-22 18:43 | NUR ---
ASSUMED CARE THIS AM. UP TO CHAIR FOR MEALS, SLOW PROGRESS TOWARD GOALS WITH PHYS THERAPY. WOUND CARE COMPLETED THIS AFTERNOON WITH WOUND NURSE, TOLERATED WELL. CONT ON AIR LOSS MATTRESS, DENIES PAIN, CALL LIGHT IN REACH, CONT POC.
[2017-11-22 21:50] VITALS: BP 137/57
[2017-11-23] VITALS: BP 120/60
--- NOTE | 2017-11-23 05:14 | NUR ---
PATIENT ALERT AND ORIENTED X 4. VITALS STABLE. RA. VICKI ENG DRESSING C/D/I. ARAUJO TO DEPENDENT DRAINAGE. PO PAIN MEDICATION GIVEN X 1, EFFECTIVE. SLEPT COMFORTABLY THROUGH THE NIGHT. REPOSITONED EVERY TWO HOURS. HOURLY ROUNDS. BED ALARM IN USE. NURSING WILL CONTINUE TO MONITOR.
[2017-11-23 08:00] VITALS: BP 128/73
[2017-11-23 16:07] VITALS: BP 150/64
--- NOTE | 2017-11-23 18:43 | NUR ---
RESUMED CARE THIS AM. TURNED FROM SIDE TO SIDE FREQUENTLY, GLUCOSE MANAGED WELL WITH DIET AND INSULIN. PATIENT DECLINED TO EXIT BED, CONT WORKING WITH THERAPIES, PROFGRESS IS MINIMAL. DRESSING TO RIGHT LOWER LEG C/D/I, IVON IV ABT WITHOUT ADR, CALL LIGHT IN REACH, CONT POC.
[2017-11-23 21:30] VITALS: BP 113/62
[2017-11-23 23:48] VITALS: BP 137/53
--- NOTE | 2017-11-24 04:47 | NUR ---
PATIENT ALERT AND ORIENTED. VITALS STABLE. RA. RIGHT LEG DRESSING C/D/I. REPOSITONED THROUGH THE NIGHT. EDEMA NOTED. ARAUJO TO DEPENDENT DRAINAGE, ADEQUATE OUTPUT. DENIES PAIN. SLEPT COMFORTABLY ALL NIGHT. HOURLY ROUNDS. BED ALARM IN USE. NURSING WILL CONTINUE TO MONITOR.
[2017-11-24 08:00] VITALS: BP 142/68
[2017-11-24 12:55] LABS: HEMATOCRIT 34.5 % (42.0-52.0); HEMOGLOBIN 11.5 gm/dL (14.0-18.0); MCH 32.3 pg (26.0-34.0); MCHC 33.3 g/dL (28.0-37.0); MPV 8.7 fl. (7.2-11.1); NUCLEATED RBCS 0 /100WBC; PLATELET COUNT* 142 thou/uL (150-400); RBC 3.56 mil/uL (4.50-6.00); RDW-CV 16.2 % (10.5-14.5); WBC 6.4 thou/uL (4.0-11.0)
[2017-11-24 12:58] LABS: CALCIUM 8.3 mg/dL (8.5-10.1); CREATININE 1.8 mg/dL (0.6-1.3); POTASSIUM 4.6 mmol/L (3.5-5.1)
[2017-11-24 13:27] LABS: ABSOLUTE LYMPHOCYTES 0.3 thou/uL (0.8-5.3); ABSOLUTE MONOCYTES 0.1 thou/uL (0.0-1.2); ATYPICAL LYMPHS 1 %
[2017-11-24 13:28] LABS: PLATELET ESTIMATE DECREASED
[2017-11-24 16:09] VITALS: BP 139/68
--- NOTE | 2017-11-24 18:40 | NUR ---
RESUMED CARE THIS AM. REPOSITIONED FREQUENTLY, IVON IV ABT WITHOUT ADR, GLUCOSE MANAGED WELL WITH INSULIN, IVON DIET WELL, BOWEL MOVEMENT X 2, NO DISTRESS NOTED, DENIES DISCOMFORT, CALL LIGHT IN REACH, CONT POC.
[2017-11-24 21:05] VITALS: BP 143/61
[2017-11-25] VITALS (7 sets, daily range): BP systolic 141–148; BP diastolic 59–63
--- NOTE | 2017-11-25 04:58 | NUR ---
PATIENT ALERT AND ORIENTED X 4. VITALS STABLE. PAIN CONTROLLED. REPOSITIONED BY NURSING AND REPOSITIONS SELF IN BED USING TRAPEZE BAR. RIGHT LEG ELEVATED ON PILLOW. DRESSING C/D/I. EDEMA NOTED. NONPRODUCTIVE COUGH. CONTINUED CONTACT ISOLATION FOR HISTORY OF MRSA IN THE NARES. HOURLY ROUNDS. BED ALARM IN USE. NURSING WILL CONTINUE TO MONITOR.
[2017-11-25] MEDS ORDERED: PREDNISONE 20 M20 MG PO (09:42)
[2017-11-25] MEDS ORDERED: OXYCODONE HCL5 M1 PO (09:42)
[2017-11-25] MEDS ORDERED: FLOMAX0.4 MG PO (09:42)
--- NOTE | 2017-11-25 12:45 | NUR ---
WOUND NURSE: PATIENT SEEN FOR F/U ASSESSMENT OF RLE AND FOOT WOUNDS: RIGHT MEDIAL MALLEOLUS: 6.0 X 3.5 X 0.8 CM. PINK TO RED GRANULATION TISSUE IN THE WOUND BED. MODERATE AMOUNT OF SANGUINOUS DRAINAG. RIGHT LATERAL MALLEOLUS: 6.0 X 9.0 X 0.5 CM. RED GRANULATION TISSUE IN THE WOUND BED AND MODERATE AMOUNT OF SANGUINOUS DRAINAGE. RIGHT MEDIAL LOWER LE.5 X 13.0 X 0.3 CM. PINK TO RED GRANULATION TISSUE IN THE WOUND BED, WITH MODERATE AMOUNT OF SANGUINOUS DRAINAGE. RIGHT LATERAL LOWER LE.0 X 2.0 X 0.2 CM. PINK AND RED GRANULATION AND EPITHELIAL TISSUE PRESENT IN THE WOUND BED AND MODERATE AMOUNT OF SANGUINOUS DRAINAGE. ALL LESIONS CLEANSED WITH SOAP AND WATER, RINSED WITH WATER, THEN PATTED DRY. APPLIED MOISTURIZER TO INTACT SKIN TOES TO KNEE. APPLIED IODOSORB GEL TO EACH WOUND, THEN COVERED WITH ABD, THEN WRAPPED WITH 4 LAYER COMPRESSON WRAP. ELEVATED LEG ON PILLOWS TO 15 DEGREES. PATIENT INSTRUCTED ON THE IMPORTANCE OF ELEVATION TO HELP CONTROL SWELLING. PATIENT REPORTS HE UNDERSTANDS. PATIENT TO BE DISCHARGED LATER TODAY BACK TO NURSING FACILITY.
--- NOTE | 2017-11-25 13:00 | NUR ---
PT.HAS DISCHARGE ORDERS TO GO BACK TO A SKILLED BED AT [facility] TODAY. NOTIFIED SKINNY. FAXED HER H&P,CONSULTS AND DISCHARGE SUMMARY. SHE WILL ARRANGE VAN FOR 1630 PER NURSING REQUEST. SHE SAID THEY HAVE PT.'S WC AT [facility] AND WILL SEND IT WITH [facility]. CHART COPIED TO GO WITH PT. NURSING TO CALL REPORT. CM NOTIFIED HIS BROTHER,DEO OF DISCHARGE AND TIME.
--- NOTE | 2017-11-25 16:41 | NUR ---
PATIENT HAS BEEN ALERT AND ORIENTED TODAY, VERY PLEASANT. VITAL SIGNS STABLE ON ROOM AIR. LUNGS SOUNDS CLEAR. ARAUJO IS IN PLACE AND DRAINING WELL. NO COMPLAINTS OF PAIN OF ANY KIND TODAY. DISCHARGE INSTRUCTIONS GIVEN, CHART COPIED AND PRESCRIPTIONS SENT TO [facility], REPORT CALLED AND GIVEN TO NURSE TAKING PATIENT.
--- NOTE | 2017-12-22 09:26 | CON ---
[address] [address] CONSULTATION Name: CARLOS SALINAS Room: [address] IN M.R.#: [id number] Admission: 11/16/17 Attend Phys: Tyshawn Ross, Discharge: 11/25/17 Date of : 37 Report #: [id number] THIS REPORT FOR: //name// CC: Joseph Ross DATE OF SERVICE: 11/17/2017 CONSULTATION: Infectious diseases. HISTORY OF PRESENT ILLNESS:Carlos Salinas is an 82-year-old white male who comes to [facility] on 11/16/2017 complaining of increased pain in his right lower extremity. The patient has a history of chronic venous stasis with venous stasis ulceration. He comes regularly to the wound care center for treatment although I do not think he has been there for over a month. He has a past history of MRSA. Most recent culture of the wound had pseudomonas, Morganella, and Providencia with multidrug resistance. He had been hospitalized at [facility] from 10/28/2017 to 11/04/2017 with sepsis. He was diagnosed as having an acute pneumonia superimposed on his chronic venous disease. He was treated with vancomycin, azithromycin and aztreonam based on empiric treatment of pneumonia and cultures from the wounds. It appears he was discharged on Augmentin plus Levaquin. He returned to the hospital with several days of increased pain, swelling and drainage from his legs. Infectious Disease /Wound Care consultation was requested. PAST MEDICAL HISTORY: Significant for diabetes with hypertension and hyperlipidemia. The patient has gout. He has a history of club foot, prostatic hypertrophy. He is morbidly obese, weighing 377 pounds even with a left below knee amputation. PAST SURGICAL HISTORY: Includes a left below knee amputation, cholecystectomy and a right fifth metatarsal resection. ALLERGIES: THE PATIENT NOTES ALLERGY TO BACTRIM. MEDICATION RECONCILIATION: Current medications include oxycodone 5 mg q. 4 hours p.r.n., multivitamin with C and minerals 1 daily, finasteride 5 mg daily, senna with docusate 1 tab daily, polyethylene glycol 17 grams daily, sertraline 50 mg daily, aspirin 162 mg daily, diltiazem CD 240 mg daily, amlodipine 5 mg daily, terazosin 5 mg daily, amiodarone 200 mg daily, insulin 16 units b.i.d., lactobacillus 1 tablet daily, vancomycin 500 mg q. 12 hours, famotidine [address] [place] [address] CONSULTATION Name: CARLOS SALINAS Room: [address] IN M.R.#: [id number] Admission: 11/16/17 Attend Phys: Tyshawn Ross, Discharge: 11/25/17 Date of : 37 Report #: [id number] b.i.d., clonidine 0.1 mg b.i.d., and p.r.n. DuoNeb. FAMILY HISTORY: Noncontributory. SOCIAL HISTORY: The patient is single, never . He has no children. 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 He has been in a shelter for approximately 7 years. He does not use tobacco, alcohol nor drugs. REVIEW OF SYSTEMS: GENERAL: The patient is not complaining of fevers, chills, sweats. ENT: No headache, sinus congestion, sore throat, trouble swallowing. CHEST: The patient says his pneumonia symptoms are pretty much gone. He denies cough, chest pain, shortness of breath. He has no angina, pleurisy, syncope, palpitations. GASTROINTESTINAL: He denies nausea, vomiting, diarrhea, constipation. GENITOURINARY: Denies urinary complaints. MUSCULOSKELETAL: He has pain in his left leg. PHYSICAL EXAMINATION: GENERAL: The patient appears his stated age, comfortable, pleasant, not in any distress. VITAL SIGNS: Normal. The patient is afebrile. SKIN: Shows obvious changes on the left leg as described below. ENT EXAMINATION: Negative. HEART: Sounds S1, S2. Regular rate and rhythm. CHEST: Breath sounds are diminished anteriorly. ABDOMEN: Belly is morbidly obese, soft, not tender. I cannot appreciate any mass nor organomegaly. EXTREMITIES: Showed the below-knee amputation on the right. The stump wound is well healed and callused. The left leg shows obvious chronic venous stasis changes. There is a chronic woody edema from the knee to the toes. The skin is very thickened, scaly and dyshidrotic. It is diffusely erythematous. There are at least 3 distinct full thickness wounds each one measuring approximately 5 x 3 cm with a depth of about 0.3 cm lined with fibrinopurulent exudate. The entire left leg appears inflamed with acute cellulitis superimposed on chronic venous stasis. LABORATORY DATA: White count is 5, hemoglobin 10.2, hematocrit 31%, platelets 170,000. Electrolytes are normal. BUN 39, creatinine 2.9, prealbumin is 16.8. Lactate is normal. Liver function tests are normal. [place] [address] CONSULTATION Name: CARLOS SALINAS Room: [address]#: [id number] Admission: 11/16/17 Attend Phys: Tyshawn Ross, Discharge: 11/25/17 Date of : 37 Report #: [id number] IMPRESSION: Chronic venous stasis with secondary cellulitis. PLAN: I concur with vancomycin to cover shelter acquired staph infection and aztreonam for gram negatives based on the previous culture. I would like to obtain new cultures from the wounds. I would like to look for treatable metabolic impediments to wound healing such as low thyroid, low zinc, heart failure, out of control diabetes. The patient has a history of gout, so we should check a uric acid. I would like to add Hunter and zinc to his diet. I wanted to do a chest x-ray. We will treat the chronic venous stasis with elevation and compression and have wound care nurse on Saturday come by to measure and photo the wounds as well as to apply multilayer wrap. For wound care, I would suggest we use Aquacel Ag to the wounds and use of absorbent dressings such as gauze and ABD and then use for tonight an Buddy wrap for compression until the wound care nurse can get a 4-layer wrap on the patient. I wonder if the patient has underlying problems related to sleep apnea, increasing his venous pressure. The patient probably has significant endovenous disease, which may be amenable to venous ablation. When the patient stabilizes, may be worthwhile for him to see a vascular specialist who can evaluate and proceed with an ablation if indicated, and a sleep specialist. I appreciate the opportunity of input in the care of Mr Salinas. I will be happy to follow him through the weekend until Dr. Lorenzana returns on Saturday. Thank you for this consultation. <ELECTRONICALLY SIGNED> By: Cheo Robles MD 12/22/17 0926 [id number] Robles MD /nt
== END 2017-11-25 16:30 | DRG 177 ==
LOC: M.ERS 15:50 → M.3W 18:01 → M.TBA-ER 18:01 → M.3W 20:15 → M.ORTHSURG 11-22 16:29
PROVIDERS: Internal Medicine; Internal Medicine Infectious Disease; Internal Medicine Nephrology; Nurse Practitioner Family; ADMIT Family Medicine
DX: J15.6 Pneumonia due to other Gram-negative bacteria (principal); N17.0 Acute kidney failure with tubular necrosis; L03.115 Cellulitis of right lower limb; E44.0 Moderate protein-calorie malnutrition; Z68.41 Body mass index [BMI] 40.0-44.9, adult; J44.1 Chronic obstructive pulmonary disease with (acute) exacerbation; E78.5 Hyperlipidemia, unspecified; M10.9 Gout, unspecified; M21.542 Acquired clubfoot, left foot; M21.541 Acquired clubfoot, right foot; E66.9 Obesity, unspecified; Z89.512 Acquired absence of left leg below knee; I48.91 Unspecified atrial fibrillation; F41.8 Other specified anxiety disorders; I87.8 Other specified disorders of veins; Z53.29 Procedure and treatment not carried out because of patient's decision for other reasons; S80.921A Unspecified superficial injury of right lower leg, initial encounter; E87.5 Hyperkalemia; N40.1 Benign prostatic hyperplasia with lower urinary tract symptoms; R33.8 Other retention of urine; Z90.49 Acquired absence of other specified parts of digestive tract; Z98.42 Cataract extraction status, left eye; Z98.41 Cataract extraction status, right eye; Z79.899 Other long term (current) drug therapy; Z79.4 Long term (current) use of insulin; Z79.1 Long term (current) use of non-steroidal anti-inflammatories (NSAID); Z88.2 Allergy status to sulfonamides; Z88.8 Allergy status to other drugs, medicaments and biological substances; N18.3 Chronic kidney disease, stage 3 (moderate); E11.22 Type 2 diabetes mellitus with diabetic chronic kidney disease; I12.9 Hypertensive chronic kidney disease with stage 1 through stage 4 chronic kidney disease, or unspecified chronic kidney disease; Z86.718 Personal history of other venous thrombosis and embolism; Z83.79 Family history of other diseases of the digestive system; Z86.14 Personal history of Methicillin resistant Staphylococcus aureus infection; X58.XXXA Exposure to other specified factors, initial encounter; Y93.89 Activity, other specified; Y92.89 Other specified places as the place of occurrence of the external cause; Y99.8 Other external cause status

== ENCOUNTER → 2017-12-13 | Outpatient (CLI) | payer MEDICARE, BC ==
[~2017-12-13] MED LIST changes: +FLOMAX0.4 MG PO; +IBUPROFEN 200200 M1 PO; +OCUVITE ADULT1 EAC1 PO; +OXYCODONE HCL5 M1 PO; +PACERONE 200 M200 MG PO; +PHENERGAN 25 MG25 M1 PO; +PREDNISONE 20 M20 MG PO; +REGLAN 5 MG TAB5 MG PO; +THERAGRAN-M PR1 EAC1 PO; +TRADJENTA5 MG; +TUSSIN DM COUG237 ML PO; +ZOLOFT50 MG PO; +[UNRECOGNIZED DRUG - OTHER] TOP
== END ==
LOC: M.WC 11-29 01:30
DX: E11.621 Type 2 diabetes mellitus with foot ulcer (principal); L97.511 Non-pressure chronic ulcer of other part of right foot limited to breakdown of skin; E11.622 Type 2 diabetes mellitus with other skin ulcer; L97.811 Non-pressure chronic ulcer of other part of right lower leg limited to breakdown of skin; I87.2 Venous insufficiency (chronic) (peripheral); E11.51 Type 2 diabetes mellitus with diabetic peripheral angiopathy without gangrene; E11.69 Type 2 diabetes mellitus with other specified complication; M86.68 Other chronic osteomyelitis, other site; I11.0 Hypertensive heart disease with heart failure; I50.30 Unspecified diastolic (congestive) heart failure; K21.9 Gastro-esophageal reflux disease without esophagitis; I48.91 Unspecified atrial fibrillation; E66.01 Morbid (severe) obesity due to excess calories; Z68.42 Body mass index [BMI] 45.0-49.9, adult; Z86.718 Personal history of other venous thrombosis and embolism; Z89.512 Acquired absence of left leg below knee

== ENCOUNTER → 2018-01-10 | Outpatient (CLI) | payer MEDICARE, BC, MEDICAID ==
--- NOTE | 2018-01-10 13:36 | CON ---
[address] [address] CONSULTATION Name: IVON SALINAS Room: [facility] RADHA MurilloJeremy#: [id number] Admission: 01/10/18 Attend Phys: Donte Ruiz, Discharge: Date of : 37 Report #: [id number] THIS REPORT FOR: //name// CC: Cristóbal Ruiz DATE OF SERVICE: 01/10/2018 INFECTIOUS DISEASE CONSULTATION FOLLOWUP The patient is seen in the wound care center. ATTENDING PHYSICIAN: Donte Ruiz DO. HISTORY OF PRESENT ILLNESS: Here for chronic venous stasis (severe) dermatitis with chronic ulcers involving the right lower extremity. The patient returns in followup. He has ongoing issues with extensive drainage from the site. It is clear, but he is not able to elevate. Compression dressings are attempted, but seemingly they, at this point, had been inadequate. He denies any particular systemic illness. He states his appetite has been fair. PHYSICAL EXAMINATION: On examination, there is a new ulcer involving the medial aspect of the posterior plantar heel that has necrotic eschar, which certainly suggests either trauma or pressure related, although he is unaware of any specific episodes. ASSESSMENT AND PLAN: Chronic venous stasis insufficiency, with likely component of lymphedema as well. In an effort to troubleshoot, consider daily wrappings with compression. Also, he does have compression pumps, which he has not been using. I encouraged him that may be an option, after getting bad. He is really concerned about that due to lack of perceived responsiveness. I did discuss the possibility of amputation as well and he seemed rather depressed today. At this point, we will continue with Augmentin in a chronic suppressive fashion. We will see him in 4 weeks. <ELECTRONICALLY SIGNED> By: Camilo Lorenzana MD 01/10/18 1336 [id number] Lorenzana MD /nt
== END ==
LOC: M.WC 02:17
DX: E11.622 Type 2 diabetes mellitus with other skin ulcer (principal); L97.811 Non-pressure chronic ulcer of other part of right lower leg limited to breakdown of skin; E11.621 Type 2 diabetes mellitus with foot ulcer; L97.411 Non-pressure chronic ulcer of right heel and midfoot limited to breakdown of skin; L97.311 Non-pressure chronic ulcer of right ankle limited to breakdown of skin; E11.51 Type 2 diabetes mellitus with diabetic peripheral angiopathy without gangrene; E11.69 Type 2 diabetes mellitus with other specified complication; M86.8X7 Other osteomyelitis, ankle and foot; I87.2 Venous insufficiency (chronic) (peripheral); E66.01 Morbid (severe) obesity due to excess calories; I11.0 Hypertensive heart disease with heart failure; I50.32 Chronic diastolic (congestive) heart failure; I48.91 Unspecified atrial fibrillation; K21.9 Gastro-esophageal reflux disease without esophagitis; Z89.512 Acquired absence of left leg below knee; Z68.42 Body mass index [BMI] 45.0-49.9, adult; Z86.718 Personal history of other venous thrombosis and embolism

== ENCOUNTER 2018-01-23 12:48 | Inpatient (IN) | payer MEDICARE, BC ==
[~2018-01-23] VITALS: Ht 195.6 cm; Wt 132.9 kg
[~2018-01-23 12:48] MED LIST changes: -IBUPROFEN 200200 M1 PO; -OCUVITE ADULT1 EAC1 PO; -PACERONE 200 M200 MG PO; -PHENERGAN 25 MG25 M1 PO; -REGLAN 5 MG TAB5 MG PO; -THERAGRAN-M PR1 EAC1 PO; -TRADJENTA5 MG
[2018-01-23 12:55] VITALS: BP 140/57
[2018-01-23] MEDS ORDERED: CARDIZEM CD240 MG PO (13:13)
[2018-01-23] MEDS ORDERED: CLONIDINE0.1 PO (13:13)
[2018-01-23] MEDS ORDERED: PACERONE 200 M200 MG PO (13:14)
[2018-01-23] MEDS ORDERED: IBUPROFEN 200200 M1 PO (13:14)
[2018-01-23] MEDS ORDERED: OCUVITE ADULT1 EAC1 PO (13:15)
[2018-01-23] MEDS ORDERED: TESSALON PERLE100 MG PO (13:15)
[2018-01-23] MEDS ORDERED: NORVASC5 MG PO (13:16)
[2018-01-23] MEDS ORDERED: COZAAR 50 MG TA50 M2 PO (13:16)
--- NOTE | 2018-01-23 13:42 | NUR ---
PT MOVED FROM HIS WHEELCHAIR TO ED BED VIA PRABHU LIFT.
[2018-01-23 13:50] LABS: CALCIUM 8.8 mg/dL (8.5-10.1); CREATININE 1.8 mg/dL (0.6-1.3)
[2018-01-23 13:53] LABS: APTT 44.8 Seconds (25.0-31.3); INR 1.3; PROTIME 12.9 Seconds (9.20-11.50)
[2018-01-23 13:55] LABS: ALBUMIN 2.3 g/dL (3.4-5.0); TOTAL BILIRUBIN 0.5 mg/dL (<0.1-1.0)
[2018-01-23 14:49] LABS: ABSOLUTE BASOPHILS 0.1 thou/uL (0.0-0.2); ABSOLUTE LYMPHOCYTES 0.4 thou/uL (0.8-5.3); ABSOLUTE MONOCYTES 0.6 thou/uL (0.0-1.2); ABSOLUTE NEUTROPHILS 21.7 thou/uL (1.6-8.1); BASOPHILS 0.5 %; EOSINOPHILS 0.1 %; HEMATOCRIT 31.9 % (42.0-52.0); HEMOGLOBIN 10.3 gm/dL (14.0-18.0); LYMPHOCYTES 1.6 %; MCH 30.4 pg (26.0-34.0); MCHC 32.2 g/dL (28.0-37.0); MCV 94.5 fL (80.0-100.0); MONOCYTES 2.6 %; MPV 8.7 fl. (7.2-11.1); NUCLEATED RBCS 0 /100WBC; PLATELET COUNT* 265 thou/uL (150-400); POLYS 95.2 %; RBC 3.38 mil/uL (4.50-6.00); RDW-CV 16.8 % (10.5-14.5); WBC 22.8 thou/uL (4.0-11.0)
[2018-01-23 17:23] VITALS: BP 111/47
[2018-01-23 17:40] VITALS: BP 124/57
--- NOTE | 2018-01-23 17:40 | NUR ---
ADMIT NOTE - PT ARRIVE FROM ED. REC REPORT FROM CHARLENE TOMLINSON. PT WITH FEVER FOR 2-3 DAYS AT [facility] AND TRANSFERRED THIS AM TO ED. REC IV ROCEPHIN AND VANC IN ER. IV IN L AC WITH NS AT 100ML. WOUND PICTURES TAKEN AND IN CHART. DRESSING TO RT LE. LEFT BKA. ORIENTED TO ROOM AND CALL LIGHT.
[2018-01-23 20:45] VITALS: BP 136/55
[2018-01-24 00:14] VITALS: BP 98/47
[2018-01-24 03:48] VITALS: BP 108/50
--- NOTE | 2018-01-24 05:47 | NUR ---
PT SLEPT MOST OF SHIFT. ASSESSMENT DOCUMENTED. MEDS GIVEN PER E-MAR. IV PATENT, FLUIDS INFUSING. NO REPORTS OF PAIN OR NAUSEA, PT REPORTED FEELING "CRAPPY". TYLENOL GIVEN FOR FEVER. TELE MONITOR IN PLACE READING A-FIB. WILL CONTINUE WITH PLAN OF CARE.
[2018-01-24 09:15] VITALS: BP 111/51
[2018-01-24 12:11] VITALS: BP 129/50
--- NOTE | 2018-01-24 13:18 | NUR ---
WOUND CARE NOTE: CONSULT RECEIVED FOR CELLULITIS. PATIENT WELL KNOWN TO ME FROM PREVIOUS HOSPITAL STAYS. UPON WALKING INTO PATIENT'S ROOM FOR ASSESSMENT, FOUL ODOR WAS NOTED. PATIENT'S NURSE HAD REMOVED DRESSING AND WASHED RIGHT LOWER EXTREMITY. CHRONIC ULCERATIONS NOTED, HOWEVER MULTIPLE NEW ULCERATIONS PRESENT. RIGHT HEEL, MEDIAL: 4.7X6.2X1.1. BLACK, MOIST, ADHERENT SLOUGH TISSUE PRESENT TO 100% OF WOUND BED. PURULENT DRAINAGE NOTED. TODD-WOUND MACERATED. MEDIAL ANKLE: 7.1X6.5X1. THICK, YELLOW, ADHERENT SLOUGH TISSUE TO 100% OF WOUND BED. TODD-WOUND MACERATED. WOUND DRAINING SMALL AMOUNTS OF SEROUS DRAINAGE. MEDIAL CALF: MULTIPLE AREAS OF DESTRUCTION, CLUSTERED MEASURES 12X13.5X0.4. 50% YELLOW, ADHERENT, MOIST SLOUGH AND 50% RED, NON-GRANULAR TISSUE. TODD-WOUND MACERATED. WOUND DRAINING MODERATE AMOUNTS OF SEROSANGUINEOUS DRAINAGE. OMER: MULTIPLE AREAS OF DESTRUCTION, CLUSTERED MEASURES 24X8X0.3. RED, MOIST, NON-GRANULAR TISSUE. DRAINING SMALL AMOUNTS OF SEROUS DRAINAGE. RIGHT LATERAL ANKLE: WOUND MEASURES 7.5X17X0.3. YELLOW, MOIST, ADHERENT SLOUGH TO 100% OF WOUND BED. DRAINING SMALL AMOUNTS OF SEROUS DRAINAGE. TODD-WOUND IS MACERATED. RIGHT LATERAL LEG: WOUND MEASURES 3.1X2.5X0.1. MOIST, RED, NON-GRANULAR TISSUE. TODD-WOUND MACERATED. DRAINING MODERATE AMOUNTS OF SEROUS DRAINAGE. LEG WAS CLEANSED WITH SOAP AND WATER, PATTED DRY. APPLIED Z-GUARD TO TODD-WOUND. APPLIED OPTIFOAM AG TO WOUNDS ON OMER. APPLIED AQUACEL AG TO ALL OTHER WOUNDS AND COVERED WITH ABDS. SECURED WITH KERLIX AND DELGADO. NO WOUNDS NOTED TO LEFT STUMP. APPEARS TO HAVE A YEAST/FUNGAL RASH TO GROIN, GENITALS, SACRUM, PERINEAL AREA. PATIENT ALREADY HAS ORDERS FOR NYSTATIN, RECOMMEND CONTINUING. ID PHYSICIAN IN DURING ASSESSMENT, NEW ORDERS RECEIVED. RECOMMEND TURN Q2 HOURS CLEANSE GROIN, GENITALS, SACRUM, PERINEAL AREA WELL PRIOR TO APPLYING NYSTATIN POWDER TIGHT BLOOD GLUCOSE CONTROL ENCOURAGE GOOD NUTRITION AND HYDRATION TURN Q2 HOURS
--- NOTE | 2018-01-24 15:24 | NUR ---
SW met with pt to complete initial assessment, introduce self, and SW role. Pt alert, oriented, pleasant. Pt lives at [facility]. Pt plan is to be able to return there at dc. Pt did not have any questions or concerns at this time. SW to continue to follow to assist with safe dc planning.
[2018-01-24 15:31] VITALS: BP 119/56
--- NOTE | 2018-01-24 17:20 | NUR ---
PATIENT DRESSING CHANGED THIS AFTERNOON PER WOUND CARE, PHOTOS TAKEN. SCHED IV ABX INFUSING ORDERED. DR. ROJAS AND DR. OWENS HERE TODAY TO SEE PATIENT. TURNED Q2. INSULIN GIVEN WITH MEALS PER SS. FAMILY HERE THIS EVENING.
[2018-01-24 20:20] VITALS: BP 115/53
[2018-01-25 02:46] VITALS: BP 126/52
--- NOTE | 2018-01-25 05:57 | NUR ---
PT SLEPT ON AND OFF THIS SHIFT. ASSESSMENT DOCUMENTED. MEDS GIVEN PER E-SEP. IV PATENT. NO REPORTS OF PAIN OR NAUSEA THIS SHIFT. PT TRIED VOIDING SEVERAL TIMES UNSUCCESSFULLY, PT BLADDER SCANNED READING <999ML. NOTIFIED, ORDERS TO PLACE A ARAUJO. ARAUJO PLACED WITH 1000ML OUT INITIALLY. PT REPOSITIONED THIS SHIFT. PT RIGHT LEG ELEVATED, PT STATED BOOT HAD TO COME OFF OF FOOT. WILL CONTINUE WITH PLAN OF CARE.
[2018-01-25 07:02] VITALS: BP 131/57
[2018-01-25 08:00] VITALS: BP 126/68
[2018-01-25 12:00] VITALS: BP 127/49
[2018-01-25 16:00] VITALS: BP 120/52
--- NOTE | 2018-01-25 20:17 | NUR ---
ASSUMED CARE THIS AM, PATIENT UNHAPPY WITH PODIATRY DISCUSSION REGARDING POSSIBLE AMPUTATION OF RIGHT LOWER EXT, DRESSINGS CHANGED. FROM PATELLA DOWN TO ENDS OF TOES, SURFACE TISSUE IS A MELANGE OF DISPOSITION, FROM NECROTIC, ULCERATED, DRY, PURULENT, BLISTERED, SLOUGHING. DENIES PAIN, IVON PROCEDURE WELL, CONSULT FOR VASCULAR CALLED IN, NO VISIT FROM VASCULAR TEAM THIS SHIFT. NOT HAVING MUCH OF AN APPETITE, BLOOD SUGARS STABLE, IVON IVF AND IV ABT WITHOUT DIFFICULTY. CARE PLAN REVIEWED WITH PATIENT, DENIES QUESTIONS, CALL LIGHT IN REACH, CONT POC.
[2018-01-26] VITALS: BP 100/33
[2018-01-26 03:28] VITALS: BP 96/38
[2018-01-26 04:16] LABS: HEMATOCRIT 26.5 % (42.0-52.0); HEMOGLOBIN 8.6 gm/dL (14.0-18.0); MCH 30.7 pg (26.0-34.0); MCHC 32.4 g/dL (28.0-37.0); MCV 94.7 fL (80.0-100.0); MPV 8.3 fl. (7.2-11.1); RBC 2.8 mil/uL (4.50-6.00); RDW-CV 16.3 % (10.5-14.5); WBC 6.4 thou/uL (4.0-11.0)
[2018-01-26 04:29] LABS: CALCIUM 7.3 mg/dL (8.5-10.1); CREATININE 1.6 mg/dL (0.6-1.3); MAGNESIUM 2.5 mg/dL (1.8-2.4); POTASSIUM 4.3 mmol/L (3.5-5.1)
--- NOTE | 2018-01-26 05:35 | NUR ---
PATIENT SLEPT MOST OF THE NIGHT. IV REMAINS SALINE LOCKED. PATIENT WAS GIVEN ANTIBIOTICS ORDERED. DRESSING TO RIGHT LEG REMAINS INTACT. ARAUJO REMAINS TO DEPENDENT DRAIN. WILL CONTINUE TO MONITOR.
[2018-01-26 08:45] VITALS: BP 104/50
--- NOTE | 2018-01-26 16:13 | NUR ---
PATIENT IV RESTARTED TO RIGHT FOREARM THIS SHIFT DUE TO INFILTRATION. SCHED ABX INFUSING ORDERED. PATIENT TURNED Q2. BM NOTED THIS SHIFT. INSULIN GIVEN WITH MEALS WHEN REQUIRED. DR. OWENS HERE AND DRESSING CHANGED TO RIGHT LEG. PHOTOS TAKEN TO COCCYX AND SCROTUM PER PROTOCOL, CREAM APPLIED. PER VASC PATIENT TO BE NPO AFTER MIDNIGHT FOR POSSIBLE SURGERY.
[2018-01-26 17:00] VITALS: BP 101/44
[2018-01-26 23:54] VITALS: BP 104/35
[2018-01-27 03:43] LABS: HEMATOCRIT 26.9 % (42.0-52.0); HEMOGLOBIN 8.8 gm/dL (14.0-18.0); MCH 31.1 pg (26.0-34.0); MCHC 32.9 g/dL (28.0-37.0); MCV 94.4 fL (80.0-100.0); MPV 8.5 fl. (7.2-11.1); RBC 2.85 mil/uL (4.50-6.00); RDW-CV 16.1 % (10.5-14.5)
[2018-01-27 04:08] LABS: CALCIUM 7.8 mg/dL (8.5-10.1); CREATININE 1.6 mg/dL (0.6-1.3); MAGNESIUM 2.4 mg/dL (1.8-2.4); POTASSIUM 4.3 mmol/L (3.5-5.1)
[2018-01-27 04:23] VITALS: BP 114/49
--- NOTE | 2018-01-27 07:35 | CON ---
[address] [address] CONSULTATION Name: DORIANVALERYWhitleyIVONJERROD SHAH Room: [address] IN .R.#: [id number] Admission: 01/23/18 Attend Phys: Brandon Rosas Discharge: Date of : 36 Report #: [id number] THIS REPORT FOR: //name// CC: Cristóbal Bacon DATE OF SERVICE: 01/24/2018 INFECTIOUS DISEASE CONSULTATION ATTENDING PHYSICIAN: Dr. Diaz. REASON FOR EVALUATION: Sepsis, probable significant skin and soft tissue infection associated with the right lower extremity in the setting of chronic venous stasis insufficiency ulcers that have been repeatedly complicated by infection. HISTORY OF PRESENT ILLNESS: Chart reviewed, patient examined. This is an 82-year-old with extensive medical history most recently revolves around his lower extremities, has diabetes mellitus, has had a previous left below knee amputation in 2008. He has chronic venous stasis insufficiency with dermatitis ulcers that have been severe and longstanding and has been followed by the wound care center. He does live in a nursing facility. He has intermittent issues with increasing drainage, pain, confirmed to have growth, generally polymicrobial associated with the wound. He has been on multiple courses of antibiotics. In addition to that, he has had other infectious complications. Apparently, he developed fevers and reported increasing drainage from the site although the dressing was in place. Was evaluated, placed on broad spectrum therapy with ceftriaxone and vancomycin. He is mildly encephalopathic. Does admit to some degree of pain associated with right lower extremity. Denies dyspnea. On evaluation, his lactic acid was 2.3. His sed rate was 113. White count was 22.8. Plain film of the foot noted question of a soft tissue gas. ALLERGIES: BACTRIM. CURRENT MEDICATIONS: Include famotidine, rivaroxaban, losartan, amlodipine, multivitamin, ibuprofen, amiodarone, clonidine, diltiazem, oxycodone, tamsulosin, ascorbic acid, linagliptin, glimepiride, furosemide, ipratropium, allopurinol, finasteride, terazosin, insulin, vancomycin and ceftriaxone. 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 He does have history of hypertension, gout, BPH, hyperlipidemia, previous cholecystectomy, venous stasis insufficiency. He may have a component of lymphedema as well[place] [address] CONSULTATION Name: IVON SALINAS Room: [address] IN [facility]#: [id number] Admission: 01/23/18 Attend Phys: Brandon Rosas Discharge: Date of : 36 Report #: [id number] SOCIAL HISTORY: Nonsmoker, no ethanol. FAMILY HISTORY: Noncontributory. REVIEW OF SYSTEMS: As above. PHYSICAL EXAMINATION: GENERAL: He appears ill, not overtly toxic. He is appropriate. He recognizes me, chronically ill appearing. VITAL SIGNS: Temperature max 103, more recently 98.5; pulse 66, respirations 18, blood pressure 111/51. SKIN: Warm, dry, no rashes. HEENT: Unremarkable. NECK: Supple. LUNGS: Few scattered coarse breath sounds. HEART: Regular. I do not appreciate any murmur. ABDOMEN: Soft, is obese. Distended. There are no peritoneal signs. GENITOURINARY: Deferred. RECTAL: Deferred. LABORATORY DATA: Blood cultures sterile thus far. CRP of 222.2. Prealbumin of 14.4. Lactic acid initially was 2.3, repeat was 1.8. Sed rate of 113. CBC: White count of 22.8, H and H 10.3 and 31.9 and platelets of 265. Electrolytes: Sodium 133, potassium 5, chloride 101, bicarbonate is 22, anion gap of 10, BUN and creatinine 45 and 1.8, glucose of 185. LFTs unremarkable. Albumin of 2.3. Total protein of 7.0. Estimated GFR of 36. ASSESSMENT: Febrile illness, likely related to right lower extremity wounds. We will treat empirically. Discussed with the wound care nurse. We will get some cultures, send those off blood. Follow up blood cultures. I will get a chest x-ray to exclude issue of pneumonitis, consider other possible sources such as intraabdominal. If he does not respond, we will adjust therapy. <ELECTRONICALLY SIGNED> By: Camilo Lorenzana MD 01/27/18 0735 1133 08Camilo Lorenzana MD /nt
[2018-01-27 08:00] VITALS: BP 98/62
[2018-01-27 17:37] VITALS: BP 123/54
--- NOTE | 2018-01-27 18:52 | NUR ---
AMPUTATION ANTICIPATED FOR SATURDAY AFTERNOON, IVON MEDS AND CARES WELL, VSS, CALL LIGHT IN REACH, CONT POC.
[2018-01-27 20:00] VITALS: BP 116/43
[2018-01-27 23:50] VITALS: BP 128/54
[2018-01-28 03:35] VITALS: BP 100/40
--- NOTE | 2018-01-28 04:06 | NUR ---
ASSUMED PATIENT CARE AT APPROX 1900. TYREE ALERT AND ORIENTED TIMES FOUR. RESTING IN BED AT THIS TIME. VULCANIZER AND VITAL SIGNS DOCUMENTED. ARAUJO CATH REMAINS PATENT TO DEPENDENT DRAINAGE. PATIENT TURNED Q2 HOURS, NYSTATIN AND BARRIER CREAM APPLIED APPROPRIATE. MINOR COMPLAINTS OF PAIN NOTED IN PATIENTS ARM. CONTROLLED WITH ORAL MEDICATION. WOUND ON LOWER LEFT EXTREMITY WRAPPED IN CLEAN/DRY DRESSING. HOURLY ROUNDING COMPLETED CHARTED. RN INTERNAL MEDICINE IN PLACE. FALL RISK PRECAUTIONS IN PLACE.
[2018-01-28 04:36] LABS: HEMATOCRIT 29.1 % (42.0-52.0); HEMOGLOBIN 9.3 gm/dL (14.0-18.0); MCH 30.6 pg (26.0-34.0); MCHC 32.1 g/dL (28.0-37.0); MCV 95.3 fL (80.0-100.0); MPV 8.6 fl. (7.2-11.1); RBC 3.06 mil/uL (4.50-6.00); RDW-CV 16.5 % (10.5-14.5); WBC 8.3 thou/uL (4.0-11.0)
[2018-01-28 04:41] LABS: CALCIUM 7.8 mg/dL (8.5-10.1); CREATININE 1.6 mg/dL (0.6-1.3); MAGNESIUM 2.3 mg/dL (1.8-2.4); POTASSIUM 4.6 mmol/L (3.5-5.1)
[2018-01-28 08:00] VITALS: BP 122/61
[2018-01-28 12:17] VITALS: BP 116/52
--- NOTE | 2018-01-28 14:36 | NUR ---
SW continuing to follow. Pt scheduled to have surgery on 01/30.
--- NOTE | 2018-01-28 14:53 | EKG ---
[place] [address] ELECTROCARDIOGRAM REPORT Name: CAMERON SALINASIX PABLO Room: [address] ADM IN .R.#: [id number] Admission: 01/23/18 Attend Phys: Brandon Rosas Discharge: Date of : 36 Report #: [id number] THIS REPORT FOR: //name// [facility] Test Date: 2018-01-28 Test Time: 14:03:17 Pat Name: IVON SALINAS Department: Room: [address] Gender: M Supervisor Lump Room: : 1935 Requested By: Sadia Gastelum Order Number: [id number] MD: Ovidio Casarez Measurements Intervals [place] Rate: 64 P: -59 ID: [id number] QRS: 59 QRSD: 120 T: 62 QT: 477 QTc: 493 Interpretive Statements Atrial fibrillation IVCD, consider atypical RBBB Compared to ECG 10/28/2017 13:27:39 Rate has slowed Electronically Signed On 01-28-2018 14:53:10 CDT by Ovidio Casarez [email or web address] <ELECTRONICALLY SIGNED> By: Ovidio Casarez MD, [facility] 01/28/18 1453 1403 1403 Ovidio Casarez MD, [facility] /EPI
[2018-01-28 16:12] VITALS: BP 125/55
[2018-01-28 20:00] VITALS: BP 125/44
[2018-01-28 23:54] VITALS: BP 123/41
[2018-01-29 04:32] VITALS: BP 120/47
[2018-01-29 04:40] LABS: HEMATOCRIT 26.6 % (42.0-52.0); HEMOGLOBIN 8.4 gm/dL (14.0-18.0); INR 1.3; MCH 30.1 pg (26.0-34.0); MCHC 31.6 g/dL (28.0-37.0); MCV 95.2 fL (80.0-100.0); MPV 8.6 fl. (7.2-11.1); PROTIME 12.2 Seconds (9.20-11.50); RBC 2.8 mil/uL (4.50-6.00); RDW-CV 16.7 % (10.5-14.5); WBC 11.8 thou/uL (4.0-11.0)
[2018-01-29 05:15] LABS: CALCIUM 7.7 mg/dL (8.5-10.1); CREATININE 1.5 mg/dL (0.6-1.3); MAGNESIUM 2.2 mg/dL (1.8-2.4); POTASSIUM 4.5 mmol/L (3.5-5.1)
[2018-01-29 08:00] VITALS: BP 108/49
[2018-01-29 11:51] VITALS: BP 124/58
[2018-01-29 15:49] VITALS: BP 121/54
--- NOTE | 2018-01-29 19:29 | NUR ---
RESUMED CARE THIS AM, A/O, NO DISTRESS, SEE ASSESSMENT FOR DETAILS, IVON IV ABT WELL, NEW IV STARTED TO LEFT AC X 1 ATTEMPT, IRRITATION TO SKIN FOLDS IMPROVING WELL WITH USE OF INTERDRY, PATIENT TURNED SIDE TO SIDE, CARE PLAN REVIEWED, ANXIOUS ABOUT AMPUTATION TOMORROW. CONT POC.
[2018-01-30] VITALS (9 sets, daily range): BP systolic 101–155; BP diastolic 41–64
[2018-01-30 04:34] LABS: HEMATOCRIT 26.5 % (42.0-52.0); HEMOGLOBIN 8.7 gm/dL (14.0-18.0); MCH 30.8 pg (26.0-34.0); MCHC 32.7 g/dL (28.0-37.0); MCV 94.3 fL (80.0-100.0); MPV 8.2 fl. (7.2-11.1); RBC 2.81 mil/uL (4.50-6.00); RDW-CV 16.6 % (10.5-14.5); WBC 9.3 thou/uL (4.0-11.0)
[2018-01-30 04:54] LABS: CALCIUM 8.3 mg/dL (8.5-10.1); CREATININE 1.7 mg/dL (0.6-1.3); MAGNESIUM 2.4 mg/dL (1.8-2.4); POTASSIUM 4.5 mmol/L (3.5-5.1)
--- NOTE | 2018-01-30 05:51 | NUR ---
PATIENT SLEPT MOST OF THE NIGHT. IV REMAINS SALINE LOCKED. PATIENT HAS NO COMPLAINTS OF PAIN. WILL CONTINUE TO MONITOR.
--- NOTE | 2018-01-30 06:02 | NUR ---
PATIENT SLEPT MOST OF THE NIGHT. IV REMAINS SALINE LOCKED. IV ANTIBIOTICS WERE GIVEN ORDERED. PATIENT HAS BEEN NPO SINCE MIDNIGHT FOR SURGERY THIS AFTERNOON. WILL CONTINUE TO MONITOR.
--- NOTE | 2018-01-30 17:00 | NUR ---
PATIENT A&OX4, ROOM AIR, IV LEFT FOREARM SALINE LOCK. BEDREST, GIARATIC BED. NO C/O PAIN/N/V. YEAST REDNESS IN ABD FOLDS, NYSTATIN APPLIED, INTERDRY PLACED. NO OTHER CONCERNS AT THIS TIME. LEFT FOR SURGERY FOR RIGHT BKA AT 1410. GAVE REPORT TO ICU SECRATARY, PATIENT MOVED TO ICU POST SURGERY FOR MAJOR BLOOD LOSS. ALL BELONGIGNS COLLECTED IN ROOM AND SENT TO ROOM 007. NOTHING LEFT BEHIND. APPROPRIATE AND COOPORATIVE WITH CARE.
[2018-01-30 22:09] LABS: HEMATOCRIT 24.3 % (42.0-52.0); HEMOGLOBIN 7.9 gm/dL (14.0-18.0); MCH 30.2 pg (26.0-34.0); MCHC 32.4 g/dL (28.0-37.0); MCV 93.3 fL (80.0-100.0); NUCLEATED RBCS 0 /100WBC; PLATELET COUNT* 266 thou/uL (150-400); RDW-CV 16.1 % (10.5-14.5)
[2018-01-30 22:16] LABS: CALCIUM 7.6 mg/dL (8.5-10.1); CREATININE 1.5 mg/dL (0.6-1.3); POTASSIUM 5.1 mmol/L (3.5-5.1)
[2018-01-30 22:58] LABS: ABSOLUTE BASOPHILS 0.1 thou/uL (0.0-0.2); ABSOLUTE EOSINOPHILS 0.1 thou/uL (0.0-0.7); ABSOLUTE LYMPHOCYTES 0.5 thou/uL (0.8-5.3); ABSOLUTE MONOCYTES 0.5 thou/uL (0.0-1.2); ABSOLUTE NEUTROPHILS 11.7 thou/uL (1.6-8.1); ANISOCYTOSIS 1+; HYPOCHROMASIA 1+; PLATELET ESTIMATE ADEQUATE; POIKILOCYTOSIS 1+; POLYCHROMASIA 1+; TOXIC GRANULATION 2+
[2018-01-31] VITALS (11 sets, daily range): BP systolic 96–156; BP diastolic 51–76
--- NOTE | 2018-01-31 05:35 | NUR ---
PT ARRIVED ON UNIT FROM PACU AT 2014 PT ALERT AND ORIENTED X4 VS AND ASSESSMENT STABLE. PT POST R BKA PREVINA VAC IN PLACE AT -125 REMAINS CDI, KNEE IMMOBILIZER IN PLACE. 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 RESPIRATORY PLACED PT ON CAPNO.PT HAD POST TRANFUSION LABS HGB 7.9 NOTIFIED VASCULAR 1 UNIT PRBC ORDERED AND ADMINISTERED WILL RECHECK POST TRANSFUSION. PT SLEPT ALL NIGHT WILL CONTINUE PLAN OF CARE.
[2018-01-31 06:48] LABS: HEMOGLOBIN 8.4 gm/dL (14.0-18.0); MCHC 33.4 g/dL (28.0-37.0); MCV 92.8 fL (80.0-100.0); MPV 7.6 fl. (7.2-11.1); RBC 2.7 mil/uL (4.50-6.00); RDW-CV 16.4 % (10.5-14.5); WBC 13.4 thou/uL (4.0-11.0)
[2018-01-31 07:00] LABS: CALCIUM 7.4 mg/dL (8.5-10.1); CREATININE 1.4 mg/dL (0.6-1.3); MAGNESIUM 2.2 mg/dL (1.8-2.4); POTASSIUM 5.3 mmol/L (3.5-5.1)
--- NOTE | 2018-01-31 10:58 | NUR ---
INTERDISICPLINARY ROUNDS: PT TRANSFERRED TO ICU YESTERDAY AFTER RBKA AND BLOOD LOSS. RECEIVED BLOOD. PT SITTING UP TODAY, STATES FEELING SOMEWHAT IMPROVED. PLAN IS FOR HIM TO RETURN TO [facility] [place], IS IN LTC. CM TO FOLLOW
--- NOTE | 2018-01-31 15:59 | NUR ---
PT TRANSFERRED TO ROOM 228. PT ORIENTED TO ROOM AND UNIT. WILL CONTINUE TO ASSESS.
[2018-01-31 16:51] LABS: HEMATOCRIT 23.2 % (42.0-52.0); HEMOGLOBIN 7.6 gm/dL (14.0-18.0)
--- NOTE | 2018-01-31 18:01 | NUR ---
MAHESH REPORTS THAT SHE HAS HAD RHIS PATIENT ALL WEEK AND HIS LAST BM WAS ON 01/28/18.
[2018-02-01] VITALS: BP 125/51
[2018-02-01 03:50] LABS: ABSOLUTE BASOPHILS 0.1 thou/uL (0.0-0.2); ABSOLUTE EOSINOPHILS 0.2 thou/uL (0.0-0.7); ABSOLUTE LYMPHOCYTES 0.6 thou/uL (0.8-5.3); ABSOLUTE NEUTROPHILS 8.8 thou/uL (1.6-8.1); BASOPHILS 0.7 %; HEMATOCRIT 21.9 % (42.0-52.0); HEMOGLOBIN 7.3 gm/dL (14.0-18.0); LYMPHOCYTES 5.8 %; MCHC 33.6 g/dL (28.0-37.0); MCV 92.4 fL (80.0-100.0); MONOCYTES 9.3 %; MPV 7.6 fl. (7.2-11.1); NUCLEATED RBCS 0 /100WBC; PLATELET COUNT* 227 thou/uL (150-400); POLYS 82.2 %; RBC 2.36 mil/uL (4.50-6.00); RDW-CV 16.1 % (10.5-14.5); WBC 10.7 thou/uL (4.0-11.0)
[2018-02-01 04:00] VITALS: BP 135/62
[2018-02-01 04:02] LABS: CALCIUM 7.2 mg/dL (8.5-10.1); CREATININE 1.3 mg/dL (0.6-1.3); MAGNESIUM 2.3 mg/dL (1.8-2.4); POTASSIUM 4.8 mmol/L (3.5-5.1)
[2018-02-01 09:00] VITALS: BP 121/51
[2018-02-01 12:00] VITALS: BP 131/45
--- NOTE | 2018-02-01 14:15 | NUR ---
ASSUMED PT CARE AT 0700 PT IS ALERT AND ORIENTED X 4 PT DENIES PAIN OR SOA ON O2, PT IS A Q 2 TURN PT IS A FALL RISK BED ALARM IS ON, PT PREVANNA WOUND VAC IS ALARMING NOTIFIED TITLE DEPARTMENT MANAGER FOR A NEW VAC AUTOMOBILE RENTAL AGENT STATED THAT PHYSICIAN IS CHANGING WOUND VAC, PHYSICIAN CHANGED WOUND VAC NO LEAKS NOTED, PT IS AFIB ON THE MONITOR, WILL CONTINUE TO MONITOR
[2018-02-01 15:47] VITALS: BP 127/46
[2018-02-01 20:00] VITALS: BP 120/46
[2018-02-02] VITALS: BP 135/71
[2018-02-02 04:00] VITALS: BP 114/69
[2018-02-02 05:24] LABS: HEMATOCRIT 21.3 % (42.0-52.0); MCH 30.7 pg (26.0-34.0); MCHC 32.5 g/dL (28.0-37.0); MCV 94.6 fL (80.0-100.0); MPV 8.3 fl. (7.2-11.1); RBC 2.26 mil/uL (4.50-6.00); RDW-CV 16.4 % (10.5-14.5); WBC 9.7 thou/uL (4.0-11.0)
--- NOTE | 2018-02-02 05:29 | NUR ---
PATIENT RESTED IN BED, NO ACUTE CHANGES. PATIENT IS NOT SHOWING SIGNS OF DISTRESS. PATIENT HEART RATE BROOKE WITIN 40'S. HEART DROP TO 39 NOT MAINTAINED, DOCTOR HAYLEYIGHT NOTIFIED OF HEART RATE, NO NEW ORDERS. FALL PRECAUTIONS IN PLACE, CALL LIGHT WITHIN REACH, HOURLY ROUNDING OBSERVED. PATIENT TURNED Q2 HOURS.
[2018-02-02 05:47] LABS: HEMOGLOBIN 6.9 gm/dL (14.0-18.0)
--- NOTE | 2018-02-02 07:33 | NUR ---
DOCOTOR NOTIFIED OF HGB, SEE ORDERS.
[2018-02-02 08:00] VITALS: BP 124/62
[2018-02-02 08:01] VITALS: BP 118/57; BP 122/50; BP 122/60; BP 130/54
--- NOTE | 2018-02-02 09:23 | NUR ---
ASSUMED CARE OF PT AT 0720. PT REMAINS A&O X4 CALM AND COOPERATIVE. PT HGB CL THIS AM AND BLOOD SUGAR WAS 47. PT HAS NO C/O HYPOGLYCEMIA SYMPTOMS. 10% DEXTROSE INFUSED. PT BLOOD SUGAR AT TIME BREAKFAST ARRIVED IS 51 AND PT CURRENTLY EATING BREAKFAST. BLOOD PRODUCTS HUNG AND BEGAN RUNNING AT 0915. NURSIGN WILL CLOSELY MONITOR FOR S/S OF ADVERSE REACTION AND FOR SAFTEY AND COMFORT.
[2018-02-02 11:58] LABS: HEMATOCRIT 23.5 % (42.0-52.0); HEMOGLOBIN 7.8 gm/dL (14.0-18.0)
[2018-02-02 16:55] VITALS: BP 154/75
--- NOTE | 2018-02-02 17:51 | NUR ---
PT REAMINED A&O FOPR THE SHIFT, WITH NO C/O PAIN OR DISCOMFORT TODAY. HGB RECHECKED AND IS NOW 7.8. PT HAS HAD A DECENT APPETIE AND HAS ATE GREATER THAN 50% OF ALL MEALS. HOURLY ROUNDING COMPLETED FOR SAFTEY AND COMFORT. NURSING WILL CONTINUE TO MONITOR.
[2018-02-03] VITALS: BP 136/78
--- NOTE | 2018-02-03 04:40 | NUR ---
ASSUMED PT CARE AT 1930. ASSESSMENT COMPLETED CHARTED. BILATERAL BELOW THE KNEE AMPUTEE, C/O FOOT PAIN, BEDREST, ARAUJO DRAINING YELLOW URINE, TRIPLE IJ SL. ABLE TO MAKE NEEDS KNOWN. WILL CONTTINUE TO MONITOR.
[2018-02-03 05:21] LABS: HEMATOCRIT 25.7 % (42.0-52.0); HEMOGLOBIN 8.4 gm/dL (14.0-18.0); MCH 30.6 pg (26.0-34.0); MCHC 32.5 g/dL (28.0-37.0); MCV 94.1 fL (80.0-100.0); MPV 8.3 fl. (7.2-11.1); RBC 2.74 mil/uL (4.50-6.00); WBC 9.8 thou/uL (4.0-11.0)
[2018-02-03 05:31] LABS: CALCIUM 7.9 mg/dL (8.5-10.1); CREATININE 1.3 mg/dL (0.6-1.3); MAGNESIUM 2.3 mg/dL (1.8-2.4); POTASSIUM 4.2 mmol/L (3.5-5.1)
[2018-02-03 08:00] VITALS: BP 132/49
--- NOTE | 2018-02-03 09:12 | OP ---
[address] [address] OPERATIVE REPORT Name: BRADIVONJERROD SHAH Room: [address] IN .R.#: [id number] Admission: 01/23/18 Attend Phys: Brandon Rosas Discharge: Date of : 37 Report #: [id number] THIS REPORT FOR: //name// CC: Cristóbal Bacon DATE OF SERVICE: 01/30/2018 PREOPERATIVE DIAGNOSIS: Wet gangrene, right leg. POSTOPERATIVE DIAGNOSIS: Wet gangrene, right leg. PROCEDURE: Right below knee amputation. SURGEON: Bruce Mesa MD CUSTOMER COMPLAINT CLERK: Zeb. COMPLICATIONS: None. ESTIMATED BLOOD LOSS: 2.5 liters. ANESTHESIA: General. INDICATIONS FOR PROCEDURE: The patient is a very pleasant 82-year-old white male status post left below-knee amputation. He has needed a right leg amputation for several years. He has refused this up until now. He now has wet gangrene and SIRS response. He is agreeable to below-knee amputation at this time. Informed consent was obtained from the patient with risks including but not limited to bleeding, infection, need for further surgery, pain, , heart attack, stroke, higher amputation. He understood these risks and was agreeable to proceed. DESCRIPTION OF PROCEDURE: The patient was taken to the OR and placed in supine position. After adequate general anesthesia was initiated, timeout was performed. The patient's right lower extremity was prepped and draped in usual sterile fashion. The patient received appropriate perioperative antibiotics. I created a transverse incision, one handbreadth below the tibial tuberosity of the right lower extremity. Sharp and blunt dissection was carried down the tibia and fibula. I divided each of these with a bone saw. There was quite a bit of bleeding due to the patient's venous hypertension throughout the procedure with difficult to control bleeding. I then created a posterior flap using an amputation knife and passed the specimen off the field. I trimmed the flap to appropriate length. I controlled bleeding and ligated the neurovascular bundles using a 2-0 silk suture ligature. I controlled bleeding with clips, ties and electrocautery. I closed the wound [place] [address] OPERATIVE REPORT Name: IVON SALINAS Room: [address] IN [facility].#: [id number] Admission: 01/23/18 Attend Phys: Brandon Rosas Discharge: Date of : 36 Report #: [id number] over the open amputation site using interrupted 2-0 Vicryl suture, a running 2-0 Vicryl suture and nubia for the skin. Incision was dressed with Prevena VAC. The patient did have extensive blood loss of 2.5 liters. We will transfuse him 2 units of blood. He is currently stable. We will place him in ICU for continued observation overnight. <ELECTRONICALLY SIGNED> By: Bruce Mesa MD 02/03/18 0912 1653 1714Roberbraden Mesa MD /pro
--- NOTE | 2018-02-03 10:49 | NUR ---
ASSUMED RESPONSIBILITY OF PT THIS AM PT IS ALERT AND ORIENTED BUT FORGETFUL AND SLEEPY RIJ CONTINUES 2L NC PURSED LIP BREATHING LSCTA DIMINISHED IN BASES M/S STATUS WOUND VAC CONT AT 125MMHG DENIES ANY PAIN AT THIS TIME Q2H TURNS BARIATRIC BED CALL LIGHT IN REACH
--- NOTE | 2018-02-03 11:27 | NUR ---
Nutrition: Hunter and Glucerna shake is ordered. PLEASE PROVIDE HUNTER (EQUIVALENT TO ARGINAID) T.I.D.
--- NOTE | 2018-02-03 13:03 | NUR ---
Faxed was sent and recieved at [facility]. Alma Rosa will contact luiz feng for any further questions or concerns.
--- NOTE | 2018-02-03 14:13 | NUR ---
CONTINUE TO FOLLOW, DISCUSSED WITH DR HARTLEY. THERAPY ORDERED. PLAN IS FOR PT TO RETURN TO [facility] [place], MAY QUALIFY FOR SNF. MET WITH PT, VOICING FRUSTRATION. WILL FOLLOW
[2018-02-04] VITALS: BP 95/35
[2018-02-04 04:00] VITALS: BP 137/62
--- NOTE | 2018-02-04 05:20 | NUR ---
PATIENT SLEPT WELL DURING THIS SHIFT. PT DENIES PAIN ON THIS SHIFT. PT WITH RT TRIPLE LUMAN IJ, NO FLUIDS INFUSING AT THIS TIME. ALL PORTS ARE SLUGGISH BUT STILL ABLE TO DRAW/FLUSH. PT WITH 2100 BLOOD SUGAR AT 189. LANTUS 10 UNITS GIVEN. PT WITH REDNESS IN GROIN AND COCCYX AREA, MYCOSTATIN POWDER APPLIED. PT TURNED Q2H PER PROTOCAL. RT STUMP WITH WOUND VAC AT 125, DSG INTACT WITH NO LEAKS. RT STUMP ELEVATED. PT WITH ARAUJO TO DEPENDENT CATHETER WITH DARK YELLOW URINE. PT INCONTINENT OF STOOL. PT ON O2 @ 3 LITERS PER NASAL CANNULA. PT DENIES NEEDS AT THIS TIME. FREQUENTLY USED ITEMS AND CALL LIGHT WITHIN REACH. SIDERAILS UPX4. PT REMAINS IN CONTACT ISOLATION. WILL CONTINUE TO MONITOR.
[2018-02-04 08:00] VITALS: BP 114/49
--- NOTE | 2018-02-04 14:45 | NUR ---
CONTINUE TO FOLLOW, DISCUSSED DC PLAN WITH DESHAUN HARTLEY AND CRYSTAL AND HANNAH AGUILAR WITH VASCULAR. TENTATIVE DC TOMORROW BACK TO [facility]. UPDATED PT AND SPOKE WITH HIS BROTHER OVER THE PHONE. IN AGREEMENT. BROTHER ASKED ABOUT PT GETTING THERAPY UPON RETURN, [facility] AWARE AND WILL CHECK HIS MEDICARE DAYS, IF NOT ABLE TO DO SNF, THEY CAN DO THERAPY UNDER PART B. FAXED UPDATE TO [facility]. WILL FOLLOW
--- NOTE | 2018-02-04 17:53 | NUR ---
PATIENT A&OX4, FLAT AFFECT. 3L O2 PURSE LIP BREATHING. RIGHT TRIPPLE IJ SALINE LOCK. UP WITH HOWYER LIFT, ONLY UP IN CHAIR FOR 30 MIN. NO APPETITE. WOUND VAC D/C BY PHYSICIAN, AND DRESSING CHANGED BY PHYSICIAN. INCONTINENT OF BOWEL, BM T-1, ARAUJO CATHETER, DARK YELLOW URINE. NO C/O PAIN/N/V. NO OTHER CONCERNS AT THIS TIME. APPROPRIATE AND COOPORATIVE WITH CARE.
[2018-02-04 20:00] VITALS: BP 119/50
[2018-02-05] VITALS: BP 139/54
[2018-02-05 04:00] VITALS: BP 126/62
--- NOTE | 2018-02-05 05:21 | NUR ---
ASSUMED PT CARE AT 1930. ASSESSMENT COMPLETED CHARTED. POSSIBLE D/C TO SNF, ABLE TO MAKE SOME NEEDS KNOWN. PT RESTING IN BED AT THIS TIME, Q2HR TURNS, NO DRAINAGE NOTED, TRIPLE IJ PATIENT AND SL. PHANTOM PAIN NOTED "IN RIGHT FOOT" BY PT FROM RECENT BKA ON RIGHT LEG. PT IS SLIGHTLY DEPRESSED FROM BEING IN THE HOSPITAL AND HAVING TO RELY ON OTHERS. WILL CONTINUE TO MONITOR.
[2018-02-05 05:45] LABS: HEMATOCRIT 23.9 % (42.0-52.0); HEMOGLOBIN 7.8 gm/dL (14.0-18.0); MCH 30.6 pg (26.0-34.0); MCHC 32.7 g/dL (28.0-37.0); MCV 93.4 fL (80.0-100.0); MPV 8.3 fl. (7.2-11.1); NUCLEATED RBCS 0 /100WBC; PLATELET COUNT* 284 thou/uL (150-400); RBC 2.55 mil/uL (4.50-6.00); RDW-CV 15.9 % (10.5-14.5); WBC 9.4 thou/uL (4.0-11.0)
[2018-02-05 06:24] LABS: ABSOLUTE EOSINOPHILS 0.1 thou/uL (0.0-0.7); ABSOLUTE LYMPHOCYTES 0.7 thou/uL (0.8-5.3); ABSOLUTE MONOCYTES 0.6 thou/uL (0.0-1.2); ABSOLUTE NEUTROPHILS 8.1 thou/uL (1.6-8.1)
[2018-02-05 06:25] LABS: ANISOCYTOSIS 1+; PLATELET ESTIMATE ADEQUATE; POIKILOCYTOSIS 1+
--- NOTE | 2018-02-05 12:11 | NUR ---
ASSUMED CARE OF PT AROUND 0730 THIS AM. REFER TO ASSESSMENT. POSSIBLE RETURN TO [facility] TODAY. PT REMAINS ON 2L OXYGEN/NC. REPORTS THAT HE USES IT PRN AT [facility]. PT FEELS WEAK. VSS. NO CONCERNS AT THIS TIME. CLWR. WCTM.
--- NOTE | 2018-02-05 13:23 | NUR ---
PER DR HARTLEY, NOT READY FOR DC YET, DR LAZO WANTS TO MONITOR WOUND. HAVING DRG AND SOME BLEEDING PER KAYLEY/SIMON NURSE. PT AWARE, CALLED AND UPDATED KASH/SKINNY AND PT'S BROTHER/CAROLINA
--- NOTE | 2018-02-05 13:47 | CON ---
[address] [address] CONSULTATION Name: BRADIVONJERROD SHAH Room: [address] IN M.R.#: [id number] Admission: 01/23/18 Attend Phys: Brandon Rosas Discharge: Date of : 36 Report #: [id number] THIS REPORT FOR: //name// CC: Cristóbal Bacon DATE OF SERVICE: 01/25/2018 CHIEF COMPLAINT: Followup of right lower extremity cellulitis with ulceration and venous insufficiency and lymphedema. Aerobic and anaerobic leg culture pending. He is on parenteral meropenem and fluconazole with good tolerance. He has type 2 diabetes mellitus, his glucose levels have been fairly well controlled, ranging from 111-167 over the last 48 hours. Prior arterial duplex Doppler of right lower extremity shows monophasic waveforms throughout the right leg without evidence of focal stenosis. He has been afebrile. Denies chills or malaise. There are no new labs for review. PHYSICAL EXAMINATION: Multiple ulcerations to right lower extremity involving the plantar medial heel, medial ankle, anterior ankle and lateral ankle. Lipodermatosclerosis with induration and cellulitis of the leg, lymphedema component likely, with advanced involvement of the foot and toes. No pallor, cyanosis or signs of acute vascular embarrassment. No popliteal adenopathy noted. IMPRESSION: Cellulitis, right lower extremity with venous insufficiency, ulceration, lymphedema, and type 2 diabetes mellitus. PLAN: The wounds were cleansed, no formal debridement performed. They were dressed with Aquacel Ag, ABDs, Kerlix and Buddy rolls. I spoke to the patient about possible below-knee amputation in light of the advanced disease to the extremity and given the fact he has not ambulated for roughly 3 months. We will follow the patient during his hospitalization. <ELECTRONICALLY SIGNED> By: Deandre Hercules DPM 02/05/18 1347 1318 25Deandre Hercules DPM /nt
--- NOTE | 2018-02-05 13:47 | CON ---
[address] [address] CONSULTATION Name: DORIANKIMBERIVONJERROD SHAH Room: [address] IN M.R.#: [id number] Admission: 01/23/18 Attend Phys: Brandon Rosas Discharge: Date of : 36 Report #: [id number] THIS REPORT FOR: //name// CC: Cristóbal Bacon DATE OF SERVICE: 01/26/2018 CHIEF COMPLAINT: Followup of cellulitis to right lower extremity with venous insufficiency, ulceration, lymphedema, type 2 diabetes mellitus and PAD. He is on parenteral vancomycin, meropenem and fluconazole. He has been afebrile, leukocytosis resolved. Blood cultures negative. Right leg wound cultures pending. Vascular surgery consult pending. LABORATORY DATA: WBC 6.4, RBC 2.80, hemoglobin 8.6, hematocrit 26.5, platelets 174. BUN 39, creatinine 1.6, glucose 157. PHYSICAL EXAMINATION: Inflammation decreased to right lower extremity with less drainage. Chronic lipodermatosclerosis with venous ulceration and resolving cellulitis. PLAN: Leg wounds were cleansed, I used a curette to debride some slough from the anterior and medial leg wounds. Bleeding was stopped with pressure. The wounds were cleansed and dressed with Aquacel Ag, ABDs, Kerlix and Buddy wrap for compression. We will follow during hospitalization. <ELECTRONICALLY SIGNED> By: Deandre Hercules DPM 02/05/18 1347 1132 1855Deandre Hercules DPM /nt
--- NOTE | 2018-02-05 13:47 | CON ---
[address] [address] CONSULTATION Name: IVON SALINAS Room: [address] IN ..#: [id number] Admission: 01/23/18 Attend Phys: Brandon Rosas Discharge: Date of : 36 Report #: [id number] THIS REPORT FOR: //name// CC: Cristóbal Bacon DATE OF SERVICE: 01/28/2018 CHIEF COMPLAINT: Right lower extremity cellulitis with venous insufficiency and ulceration. HISTORY OF PRESENT ILLNESS: He is scheduled for right BK amputation in 2 days by Vascular Surgery. He has been running a low-grade fever with chills. He is on parenteral vancomycin and meropenem. Right leg wound cultures grew Pseudomonas and Morganella morganii. LABORATORY DATA: WBC 8.3, RBC 3.06, hemoglobin 9.3, hematocrit 29.1, platelets 211. BUN 35, creatinine 1.6, glucose 90. PHYSICAL EXAMINATION: Right lower extremity compression wrap is intact. The nurses have a scheduled bath and leg cleansing at 2:00 today. PLAN: Vascular Surgery to proceed with BK amputation this . <ELECTRONICALLY SIGNED> By: Deandre Hercules DPM 02/05/18 1347 1223 2131Dleighton Hercules DPM /nt
--- NOTE | 2018-02-05 13:47 | CON ---
[address] [address] CONSULTATION Name: BRADIVONJERROD SHAH Room: [address] IN M.R.#: [id number] Admission: 01/23/18 Attend Phys: Brandon Rosas Discharge: Date of : 36 Report #: [id number] THIS REPORT FOR: //name// CC: Cristóbal Bacon DATE OF SERVICE: 01/24/2018 REASON FOR CONSULTATION: Right lower extremity venous insufficiency with ulceration and cellulitis, ulceration to right inferior heel. HISTORY OF PRESENT ILLNESS: The patient admitted for right lower extremity cellulitis with ulceration and septicemia. He is a type 2 diabetic, status post left BKA in 2008. He has an extensive medical history and has been treated as an outpatient at [facility] for right lower extremity venous insufficiency with ulceration. He likely has a lymphedema component to and he has pumps at home, which he has not been using. He has had recent fevers and generalized malaise, fatigue and night sweats. He is currently on parenteral meropenem. He has type 2 diabetes mellitus with right lower extremity peripheral vascular disease. Arterial Doppler ultrasound from 02/2017 shows monophasic waveforms to the right lower extremity with no focal stenosis. Blood and wound cultures are pending. The patient is alert to person, place and time, and able to converse about his medical condition. LABORATORY DATA: WBC 22.8, RBC 3.38, hemoglobin 10.3, hematocrit 31.9 and platelets 265,000. BUN 45, creatinine 1.8 and glucose 185. PHYSICAL EXAMINATION: The right lower extremity is wrapped in a compressive bandage recently performed by the wound care nurse. There is no pallor or cyanosis to the distal toes. He has obvious lymphedema to the extremity. He has well-healed left BK amputation incision. I spoke with the patient and I will change his bandage tomorrow. Apparently, he has a right heel wound, which may require some debridement. I reviewed x-rays, which were negative for osteomyelitis. I did not see any subcutaneous gas throughout the tissue to indicate an anaerobic gas-producing infection, in contrast to what the radiologist reported in the foot radiograph report. <ELECTRONICALLY SIGNED> By: Deandre Hercules DPM 02/05/18 1347 1631 [id number] Hercules DPM /nt
--- NOTE | 2018-02-05 14:46 | NUR ---
WOUND CARE NOTE: DRESSING CHANGE SURGEON IN TO ASSESS WOUND, REQUESTED NEW DRESSING TO BE PLACED. ROSA INTACT TO INCISION LINE. DRAINING SMALL AMOUNT OF SANGUINEOUS DRAINAGE. MOIST, YELLOW SLOUGH TO INCISION EDGES. NO REDNESS NOTED. APPLIED DRAWTEX TO INCISION LINE AND COVERED WITH ABD. SECURED WITH KERLIX THEN ABD. WE WILL REASSESS INCISION TOMORROW AND DECIDE ON WOUND CARE ORDERS. RECOMMEND CONTINUE USING IMMOBILIZER ENCOURAGE GOOD NUTRITION-PATIENT IS ONLY EATING CEREAL AND ENSURE DRINKS PER SALES AGENT TRADING STAMPS TIGHT BLOOD GLUCOSE CONTROL
[2018-02-05 16:00] VITALS: BP 126/89
--- NOTE | 2018-02-05 18:50 | NUR ---
PATIENT A&OX4, 1.5L O2 NC. RIGHT TRIPPLE LUMEN IJ SALINE LOCK. UP WITH MAX ASSISTX2 WITH HOWYER LIFT. NO C/O PAIN/N/V. ARAUJO IN PLACE, YELLOW. JENNA LANCE AND FABIO LANCE, BURKE C/D/I. INCONTINENT OF BOWEL. REDNESS TO GROIN AND BOTTOM, BARRIER CREAM APPLIED. NO OTHER CONCERNS AT THIS TIME. APPROPRIATE AND COOPORATIVE WITH CARE.
[2018-02-05 20:00] VITALS: BP 115/62
[2018-02-06] VITALS: BP 126/55
[2018-02-06 04:00] VITALS: BP 124/60
--- NOTE | 2018-02-06 04:36 | NUR ---
ASSUMED PT CARE AT 1930. ASSESSMENT COMPLETED CHARTED. BILATERAL BKA, PROSTETIC TO BE FIT, WOUND CARE NURSE DRESSED R BKA WITH NO DRAINAGE NOTED. Q2 TURNS, BARIATRIC BED, PHANTOM PAIN NOTED AT TIMES. PT SEEMS LESS DEPRESSED TODAY. PT RESTED THROUGHOUT THE NIGHT WITHOUT MUCH DIFFICULTIES. WILL CONTINUE TO MONITOR.
[2018-02-06 08:00] VITALS: BP 110/45
--- NOTE | 2018-02-06 12:31 | NUR ---
RECEIVED REPORT FROM PERLITA CHANG. ASSUMED CARE OF PT AROUND 0730. PT A&O X4, FORGETFULL AT TIMES. VSS. O2 SAT 92% ON 1.5L NC. PT M/S STATUS. AM ASSESSMENT AND VITALS COMPLETED CHARTED. PT DENIES PAIN OR DISCOMFORT SO FAR THIS SHIFT. PT SEEMS DEPRESSED AND SAD ABOUT SITUATION. PT ASSISTED TO SIT UP IN BED FOR MEALS - GOOD NUTRITION ENCOURAGED. RIGHT LEG IMMOBILIZER IN PLACE. DRESSING TO RIGHT BKA CDI. PT BEING TURNED Q2HRS FOR COMFORT AND SKIN INTEGRITY. ARAUJO IN PLACE TO DD, URINE YELLOW. PT CURRENTLY SITTING UP IN BED EATING LUNCH. FALL PRECAUTIONS IN PLACE. HOURLY ROUNDING PERFORMED. CALL LIGHT IS WITHIN REACH. WCTM.
--- NOTE | 2018-02-06 14:23 | NUR ---
ORDERS RECEIVED FOR DC BACK TO [facility]. THEY PLAN TO SKILL PT. VASCULAR AND WOUND NURSE HERE AND INCISIONAL VAC REPLACED. SPOKE WITH LEONIDAS AND SKINNY/Saul, AWARE PT RETURNING WITH VAC. ORDERS FAXED TO [facility]. CHART COPIED. MET WITH PT AND SPOKE WITH BROTHER/DEO OVER THE PHONE, IN AGREEMENT WITH DC BACK TO [facility]. ARRANGED AMBULANCE FOR 1630, RN HAS NUMBER TO CALL REPORT
[2018-02-06] MEDS ORDERED: BENADRYL25 MG PO (15:44)
[2018-02-06] MEDS ORDERED: NYAMYC15 GM TOP (15:57)
[2018-02-06] MEDS ORDERED: REGLAN 5 MG TAB5 MG PO (16:05)
[2018-02-06] MEDS ORDERED: THERAGRAN-M PR1 EAC1 PO (16:06)
[2018-02-06] MEDS ORDERED: PHENERGAN 25 MG25 M1 PO (16:06)
[2018-02-06] MEDS ORDERED: TRADJENTA5 MG (16:07)
[2018-02-06 16:23] VITALS: BP 110/45
--- NOTE | 2018-02-06 17:15 | NUR ---
DISCHARGE ORDERS RECEIVED. DISCHARGE COMPLETED DOCUMENTED. PT GOING BACK TO [facility]. CHART COPIED AND PLACED INTO FOLDER WITH DISCHARGE SUMMARY. ALL BELONGINGS GATHERED AND SENT WITH AMBULANCE CREW INCLUDING LEFT LEG PROSTHETIC, PT'S WHEELCHAIR, RIGHT LEG IMMOBILIZER, AND DEVELOPMENTAL MATHEMATICS INSTRUCTOR SOCK FOR RIGHT LEG. CENTRAL LINE REMOVED. FOELY CATHETER LEFT IN PLACE. REPORT CALLED TO DAVI AT [facility] - DAVI AWARE OF PT'S WOUND CARE F/U APPOINTMENT ON 02/12/18 AT 11AM. PT VSS AT TIME OF DC. PT RECEIVED BED BATH PRIOR TO DISCHARGING. PT SEEN BY JEFF YOUNG FROM VASCULAR PRIOR TO DISCHARGING - DRESSING TO RIGHT LEG CHAGNED AND NEW WOUND VAC PLACED. DISCHARGE PICTURES TAKEN OF ALL WOUNDS. PT LEFT UNIT ON [facility] WITH AMBULANCE STAFF. PT LEFT HOSPITAL IN AMBULANCE.
--- NOTE | 2018-02-24 11:07 | PATH ---
[address] [address] PATHOLOGY RPT PROCEDURE Name: DORIANCARLOS QUIROGA PABLO Room: [address] IN M.R.#: [id number] Admission: 01/23/18 Date of : 37 Discharge: 02/06/18 Report #: [id number] Path Case #: [id number] LCA Accession Number: [id number] . 01 Material submitted: . RIGHT LOWER LEG . 01 Clinical history: . Cellulitis right lower extremity, left foot gangrene . 02 Diagnosis: Right lower leg, below knee amputation: - Right lower extremity with foot ulcerations, acute inflammation and necrosis of soft tissues, osteomyelitis of calcaneus, stasis dermatitis, and suggestion of verruca vulgaris. - Severe diffuse calcifying arteriosclerosis of anterior and posterior tibial and dorsalis pedis arteries with evidence of remote venous occlusive disease with recanalization in proximal vascular resection margin tissue. . [facility]/02/06/2018 . 02 Comment: In A3, taken from the vascular resection margin, a vein shows evidence of remote occlusion with fibrosis and recanalization. (ELY:pit; 02/06/2018) . 02 Electronically signed: . Román Patricia MD, Pathologist NPI- [id number] . 01 Gross description: . Received wrapped in a red biohazard bag, labeled "Carlos Salinas and right lower leg", is a right below knee amputation measuring 33.3 cm from the soft tissue to heel, 25.5 cm from heel to tip of big toe with 3.7 cm of tibial bone and 3.0 cm of fibula bone extending beyond the soft tissue resection margin. The skin, soft tissue, and bone at the margin appear viable. The vessels at the margin are patent. All toes are present and show thickened, edematous skin and intact thickened, yellow nails. . There are several ulcers, the largest measuring 5.8 x 5.5 cm at the heel that has a dark brown-black necrotic ulcer bed. Sectioning of the ulcer shows a necrotic soft tissue that does extend to the bone that is soft and easy to cut. . The subcutaneous tissue is diffusely thickened, edematous with several focal areas of skin slippage and hypopigmented. The anterior, posterior and dorsalis pedis arteries are dilated. [place] [address] PATHOLOGY RPT PROCEDURE Name: CARLOS SALINAS Room: [address] IN M.R.#: [id number] Admission: 01/23/18 Date of : 37 Discharge: 02/06/18 Report #: [id number] Path Case #: [id number] identified. . Automobile Body Repairer sections are submitted as follows: A1. Resection margin, skin and soft tissue (inked blue) A2. Bone resection margin, tibia and fibula (inked black) after decalcification A3. Vascular resection margin A4. Ulcer at heel to underlying soft tissue and bone, after decalcification A5. Thickened/edematous skin A6. Anterior vessel A7. Posterior vessel A8. Dorsalis pedis . ([facility]; 02/01/2018) SHS/SHS . 02 Pathologist provided ICD-10: I70.261, L98.499, L30.9 . 02 CPT . 467429, [id number] Performed at: 01 [facility] [address] [place] [address] [address], [place], [place] [id number] MD Donte Hyde MD Phone: [phone] Performed at: 02 [facility] [address] [place], [place] [id number] MD Román Patricia MD Phone: [phone]
== END 2018-02-06 17:21 | DRG 853 ==
LOC: M.ERS 12:48 → M.ICU 14:35 → M.3W 14:35 → M.TBA-ER 14:35 → M.3W 17:35 → M.ICU 01-30 16:18 → M.2W 01-31 14:10
PROVIDERS: Family Medicine; Internal Medicine; Nurse Practitioner Family; Surgery Vascular Surgery; ADMIT Internal Medicine
PROC: 02HV33Z Insertion of Infusion Device into Superior Vena Cava, Percutaneous Approach (ICD-10-PCS; principal; 2018-01-30)
PROC: 30233N1 Transfusion of Nonautologous Red Blood Cells into Peripheral Vein, Percutaneous Approach (ICD-10-PCS; principal; 2018-01-30)
PROC: 0Y6H0Z1 Detachment at Right Lower Leg, High, Open Approach (ICD-10-PCS; principal; 2018-01-30)
DX: A41.9 Sepsis, unspecified organism (principal); K85.90 Acute pancreatitis without necrosis or infection, unspecified; L03.115 Cellulitis of right lower limb; E11.52 Type 2 diabetes mellitus with diabetic peripheral angiopathy with gangrene; I96 Gangrene, not elsewhere classified; M86.9 Osteomyelitis, unspecified; E11.22 Type 2 diabetes mellitus with diabetic chronic kidney disease; M10.9 Gout, unspecified; E11.69 Type 2 diabetes mellitus with other specified complication; N40.0 Benign prostatic hyperplasia without lower urinary tract symptoms; E78.5 Hyperlipidemia, unspecified; I87.2 Venous insufficiency (chronic) (peripheral); I12.9 Hypertensive chronic kidney disease with stage 1 through stage 4 chronic kidney disease, or unspecified chronic kidney disease; I89.0 Lymphedema, not elsewhere classified; N18.9 Chronic kidney disease, unspecified; E66.9 Obesity, unspecified; Z68.34 Body mass index [BMI] 34.0-34.9, adult; Z90.49 Acquired absence of other specified parts of digestive tract; Z98.42 Cataract extraction status, left eye; Z98.41 Cataract extraction status, right eye; Z88.2 Allergy status to sulfonamides; Z88.8 Allergy status to other drugs, medicaments and biological substances; Z79.82 Long term (current) use of aspirin; Z79.899 Other long term (current) drug therapy

== ENCOUNTER → 2018-02-12 | Outpatient (CLI) | payer MEDICARE, BC, MEDICAID ==
[~2018-02-12] MED LIST changes: +IBUPROFEN 200200 M1 PO; +OCUVITE ADULT1 EAC1 PO; +PACERONE 200 M200 MG PO; +PHENERGAN 25 MG25 M1 PO; +REGLAN 5 MG TAB5 MG PO; +THERAGRAN-M PR1 EAC1 PO; +TRADJENTA5 MG
== END ==
LOC: M.WC 05:11
DX: T87.89 Other complications of amputation stump (principal); E11.51 Type 2 diabetes mellitus with diabetic peripheral angiopathy without gangrene; E11.69 Type 2 diabetes mellitus with other specified complication; M86.8X8 Other osteomyelitis, other site; I87.2 Venous insufficiency (chronic) (peripheral); M10.9 Gout, unspecified; E66.01 Morbid (severe) obesity due to excess calories; I11.0 Hypertensive heart disease with heart failure; I50.32 Chronic diastolic (congestive) heart failure; I48.91 Unspecified atrial fibrillation; K21.9 Gastro-esophageal reflux disease without esophagitis; Z68.42 Body mass index [BMI] 45.0-49.9, adult; Z86.718 Personal history of other venous thrombosis and embolism; Y83.5 Amputation of limb(s) as the cause of abnormal reaction of the patient, or of later complication, without mention of misadventure at the time of the procedure

== ENCOUNTER → 2018-02-19 | Outpatient (CLI) | payer MEDICARE, BC, MEDICAID | LOC: M.WC 04:45 | DX: T87.89 Other complications of amputation stump (principal); E11.621 Type 2 diabetes mellitus with foot ulcer; E11.51 Type 2 diabetes mellitus with diabetic peripheral angiopathy without gangrene; E11.69 Type 2 diabetes mellitus with other specified complication; M86.8X8 Other osteomyelitis, other site; I87.2 Venous insufficiency (chronic) (peripheral); I11.0 Hypertensive heart disease with heart failure; I50.32 Chronic diastolic (congestive) heart failure; M10.9 Gout, unspecified; E66.01 Morbid (severe) obesity due to excess calories; I48.91 Unspecified atrial fibrillation; K21.9 Gastro-esophageal reflux disease without esophagitis; Z86.718 Personal history of other venous thrombosis and embolism; Y83.5 Amputation of limb(s) as the cause of abnormal reaction of the patient, or of later complication, without mention of misadventure at the time of the procedure ==

== ENCOUNTER → 2018-02-26 | Outpatient (CLI) | payer MEDICARE, BC, MEDICAID | LOC: M.WC 02:57 | DX: T87.89 Other complications of amputation stump (principal); E11.51 Type 2 diabetes mellitus with diabetic peripheral angiopathy without gangrene; E11.69 Type 2 diabetes mellitus with other specified complication; M86.8X8 Other osteomyelitis, other site; I87.2 Venous insufficiency (chronic) (peripheral); I11.0 Hypertensive heart disease with heart failure; I50.32 Chronic diastolic (congestive) heart failure; M10.9 Gout, unspecified; I48.91 Unspecified atrial fibrillation; E66.01 Morbid (severe) obesity due to excess calories; K21.9 Gastro-esophageal reflux disease without esophagitis; Z86.718 Personal history of other venous thrombosis and embolism; Z68.42 Body mass index [BMI] 45.0-49.9, adult; Y83.5 Amputation of limb(s) as the cause of abnormal reaction of the patient, or of later complication, without mention of misadventure at the time of the procedure ==

== ENCOUNTER → 2018-03-05 | Outpatient (CLI) | payer MEDICARE, BC, MEDICAID | LOC: M.WC 04:04 | DX: T87.89 Other complications of amputation stump (principal); E11.69 Type 2 diabetes mellitus with other specified complication; M86.8X7 Other osteomyelitis, ankle and foot; I87.2 Venous insufficiency (chronic) (peripheral); E66.01 Morbid (severe) obesity due to excess calories; I11.0 Hypertensive heart disease with heart failure; I50.32 Chronic diastolic (congestive) heart failure; I48.91 Unspecified atrial fibrillation; M10.9 Gout, unspecified; Z96.652 Presence of left artificial knee joint; Z86.718 Personal history of other venous thrombosis and embolism; Z68.42 Body mass index [BMI] 45.0-49.9, adult; Y83.5 Amputation of limb(s) as the cause of abnormal reaction of the patient, or of later complication, without mention of misadventure at the time of the procedure ==

== ENCOUNTER → 2018-03-12 | Outpatient (CLI) | payer MEDICARE, BC, MEDICAID | LOC: M.WC 03:18 | DX: T87.89 Other complications of amputation stump (principal); E11.51 Type 2 diabetes mellitus with diabetic peripheral angiopathy without gangrene; E11.69 Type 2 diabetes mellitus with other specified complication; M86.8X8 Other osteomyelitis, other site; I87.2 Venous insufficiency (chronic) (peripheral); I11.0 Hypertensive heart disease with heart failure; I50.32 Chronic diastolic (congestive) heart failure; I48.91 Unspecified atrial fibrillation; K21.9 Gastro-esophageal reflux disease without esophagitis; E66.01 Morbid (severe) obesity due to excess calories; M10.9 Gout, unspecified; Z68.42 Body mass index [BMI] 45.0-49.9, adult; Z86.718 Personal history of other venous thrombosis and embolism; Y83.5 Amputation of limb(s) as the cause of abnormal reaction of the patient, or of later complication, without mention of misadventure at the time of the procedure ==

== ENCOUNTER → 2018-03-19 | Outpatient (CLI) | payer MEDICARE, BC, MEDICAID | LOC: M.WC 01:32 | DX: T87.89 Other complications of amputation stump (principal); E11.622 Type 2 diabetes mellitus with other skin ulcer; L97.811 Non-pressure chronic ulcer of other part of right lower leg limited to breakdown of skin; I87.2 Venous insufficiency (chronic) (peripheral); E11.51 Type 2 diabetes mellitus with diabetic peripheral angiopathy without gangrene; E11.69 Type 2 diabetes mellitus with other specified complication; M86.8X8 Other osteomyelitis, other site; E66.01 Morbid (severe) obesity due to excess calories; I11.0 Hypertensive heart disease with heart failure; I50.30 Unspecified diastolic (congestive) heart failure; I48.91 Unspecified atrial fibrillation; K21.9 Gastro-esophageal reflux disease without esophagitis; M10.9 Gout, unspecified; Z86.718 Personal history of other venous thrombosis and embolism; Z68.42 Body mass index [BMI] 45.0-49.9, adult; Y83.5 Amputation of limb(s) as the cause of abnormal reaction of the patient, or of later complication, without mention of misadventure at the time of the procedure ==

== ENCOUNTER → 2018-04-02 | Outpatient (CLI) | payer MEDICARE, BC, MEDICAID | LOC: M.WC 04:47 | DX: T87.89 Other complications of amputation stump (principal); E11.622 Type 2 diabetes mellitus with other skin ulcer; L97.811 Non-pressure chronic ulcer of other part of right lower leg limited to breakdown of skin; E11.51 Type 2 diabetes mellitus with diabetic peripheral angiopathy without gangrene; E11.69 Type 2 diabetes mellitus with other specified complication; M86.8X8 Other osteomyelitis, other site; E66.01 Morbid (severe) obesity due to excess calories; I87.2 Venous insufficiency (chronic) (peripheral); I11.0 Hypertensive heart disease with heart failure; I50.30 Unspecified diastolic (congestive) heart failure; I48.91 Unspecified atrial fibrillation; K21.9 Gastro-esophageal reflux disease without esophagitis; M10.9 Gout, unspecified; Z86.718 Personal history of other venous thrombosis and embolism; Z89.512 Acquired absence of left leg below knee; Z68.42 Body mass index [BMI] 45.0-49.9, adult; Y83.5 Amputation of limb(s) as the cause of abnormal reaction of the patient, or of later complication, without mention of misadventure at the time of the procedure ==

== ENCOUNTER → 2018-04-16 | Outpatient (CLI) | payer MEDICARE, BC, MEDICAID | LOC: M.WC 05:16 | DX: E11.622 Type 2 diabetes mellitus with other skin ulcer (principal); L97.811 Non-pressure chronic ulcer of other part of right lower leg limited to breakdown of skin; E11.69 Type 2 diabetes mellitus with other specified complication; M86.8X8 Other osteomyelitis, other site; E11.51 Type 2 diabetes mellitus with diabetic peripheral angiopathy without gangrene; E66.01 Morbid (severe) obesity due to excess calories; I87.2 Venous insufficiency (chronic) (peripheral); I48.91 Unspecified atrial fibrillation; I11.0 Hypertensive heart disease with heart failure; I50.30 Unspecified diastolic (congestive) heart failure; K21.9 Gastro-esophageal reflux disease without esophagitis; M10.9 Gout, unspecified; Z86.718 Personal history of other venous thrombosis and embolism; Z68.42 Body mass index [BMI] 45.0-49.9, adult; Z89.512 Acquired absence of left leg below knee; Z89.511 Acquired absence of right leg below knee ==

== ENCOUNTER → 2018-05-07 | Outpatient (CLI) | payer MEDICARE, BC | LOC: M.WC 04-30 03:54 | DX: E11.622 Type 2 diabetes mellitus with other skin ulcer (principal); L97.811 Non-pressure chronic ulcer of other part of right lower leg limited to breakdown of skin; E11.51 Type 2 diabetes mellitus with diabetic peripheral angiopathy without gangrene; E11.69 Type 2 diabetes mellitus with other specified complication; M86.8X8 Other osteomyelitis, other site; E66.01 Morbid (severe) obesity due to excess calories; I87.2 Venous insufficiency (chronic) (peripheral); I11.0 Hypertensive heart disease with heart failure; I50.30 Unspecified diastolic (congestive) heart failure; I48.91 Unspecified atrial fibrillation; K21.9 Gastro-esophageal reflux disease without esophagitis; M10.9 Gout, unspecified; Z89.512 Acquired absence of left leg below knee; Z86.718 Personal history of other venous thrombosis and embolism; Z68.42 Body mass index [BMI] 45.0-49.9, adult; Z89.511 Acquired absence of right leg below knee ==

== ENCOUNTER → 2018-06-04 | Outpatient (CLI) | payer MEDICARE, BC | LOC: M.WC 03:08 | DX: E11.622 Type 2 diabetes mellitus with other skin ulcer (principal); L97.811 Non-pressure chronic ulcer of other part of right lower leg limited to breakdown of skin; E11.69 Type 2 diabetes mellitus with other specified complication; M86.8X8 Other osteomyelitis, other site; E11.51 Type 2 diabetes mellitus with diabetic peripheral angiopathy without gangrene; E66.01 Morbid (severe) obesity due to excess calories; I11.0 Hypertensive heart disease with heart failure; I50.30 Unspecified diastolic (congestive) heart failure; I48.91 Unspecified atrial fibrillation; I87.2 Venous insufficiency (chronic) (peripheral); K21.9 Gastro-esophageal reflux disease without esophagitis; M10.9 Gout, unspecified; Z68.42 Body mass index [BMI] 45.0-49.9, adult; Z89.512 Acquired absence of left leg below knee; Z86.718 Personal history of other venous thrombosis and embolism; I89.0 Lymphedema, not elsewhere classified ==

== ENCOUNTER 2020-11-13 02:26 | Emergency (ER) | payer MEDICARE, BC ==
[~2020-11-13] VITALS: Ht 170.2 cm; Wt 115.2 kg
[2020-11-13] MEDS ORDERED: OMEPRAZOLE 20 M20 M1 PO (02:46)
[2020-11-13] MEDS ORDERED: ARICEPT10 M1 PO (02:46)
[2020-11-13] MEDS ORDERED: WELLBUTRIN XL300 MG PO (02:46)
[2020-11-13] MEDS ORDERED: ZUPLENZ8 MG PO (02:47)
[2020-11-13] MEDS ORDERED: TRIAMCINOLONE A15 G1 TOP (02:48)
[2020-11-13 03:11] LABS: HEMATOCRIT 33.7 % (42.0-52.0); HEMOGLOBIN 10.9 gm/dL (14.0-18.0); MCH 32.7 pg (26.0-34.0); MCHC 32.3 g/dL (28.0-37.0); MCV 101.3 fL (80.0-100.0); MPV 8.2 fl. (7.2-11.1); NUCLEATED RBCS 0 /100WBC; PLATELET COUNT* 179 thou/uL (150-400); RBC 3.33 mil/uL (4.50-6.00); RDW-CV 15.3 % (10.5-14.5); WBC 9.4 thou/uL (4.0-11.0)
[2020-11-13 03:13] LABS: BE 1.2 mmol/L (-2 to +3); PCO2 45.6 mmHg (35.0-45.0); PO2 68.1 mmHg (75.0-100.0); pH 7.384 (7.340-7.450)
[2020-11-13 03:25] LABS: APTT 33.7 Seconds (25.0-31.3); CALCIUM 8.7 mg/dL (8.5-10.1); CREATININE 1.4 mg/dL (0.6-1.3); INR 1.2; POTASSIUM 3.6 mmol/L (3.5-5.1); PROTIME 12.6 Seconds (9.20-11.50)
[2020-11-13 03:29] LABS: ALBUMIN 2.8 g/dL (3.4-5.0); MAGNESIUM 2.3 mg/dL (1.8-2.4); TOTAL BILIRUBIN 0.3 mg/dL (<0.1-1.0); TOTAL PROTEIN 6.7 g/dL (6.4-8.2)
[2020-11-13 04:16] LABS: ABSOLUTE EOSINOPHILS 0.1 thou/uL (0.0-0.7); ABSOLUTE LYMPHOCYTES 0.8 thou/uL (0.8-5.3); ABSOLUTE MONOCYTES 0.2 thou/uL (0.0-1.2); ABSOLUTE NEUTROPHILS 8.3 thou/uL (1.6-8.1); PLATELET ESTIMATE ADEQUATE
[2020-11-13 04:36] LABS: URINE BILIRUBIN NEGATIVE (Negative); URINE BLOOD 2+ (Negative); URINE CLARITY CLEAR; URINE COLOR YELLOW; URINE GLUCOSE-RANDOM NEGATIVE (Negative); URINE KETONES NEGATIVE (Negative); URINE NITRITE-REFLEX NEGATIVE (Negative); URINE PROTEIN 1+ (Negative); URINE SPECIFIC GRAVITY 1.015 (1.005-1.030); URINE UROBILINOGEN 0.2 E.U./dl (0.2-1.0)
[2020-11-13 05:38] LABS: URINE LEUKOCYTES-REFLEX 2+ (Negative)
[2020-11-13 05:39] LABS: BACTERIA-REFLEX >30 Many /HPF (None Seen); MUCUS 4-6 Moderate strn/LPF (None Seen); SQUAMOUS 0-3 Few /LPF (0-3); TRANSITIONAL EPITHEL CELL 0-3 Few /LPF (None Seen); URINE WBC-REFLEX 6-15 Few /HPF (0-5); WBC CLUMPS Few (None Seen)
[2020-11-13 05:40] LABS: CASTS None Seen /LPF (None Seen); CRYSTALS None Seen /LPF (None Seen)
[2020-11-13 06:35] VITALS: BP 129/56
--- NOTE | 2020-11-14 14:41 | EKG ---
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 : 1935 Requested By: Charis Penaloza Order Number: [id number] MD: Cheo Quintero Measurements Intervals [place] Rate: 58 P: MA: QRS: 28 QRSD: 134 T: 53 QT: 519 QTc: 510 Interpretive Statements Atrial fibrillation Ventricular premature complex Right bundle branch block Compared to ECG 01/28/2018 14:03:17 Ventricular premature complex(es) now present Electronically Signed On 11-14-2020 14:41:22 CDT by Cheo Quintero [email or web address] <ELECTRONICALLY SIGNED> By: Cheo Quintero MD, [facility] 11/14/20 1441 0231 0231 Cheo Quintero MD, [facility] /EPI
== END 2020-11-13 06:34 | disposition home or self-care (01) ==
LOC: M.ERS 02:26
PROVIDERS: Personal Emergency Response Attendant
DX: S01.411A Laceration without foreign body of right cheek and temporomandibular area, initial encounter (principal); S05.11XA Contusion of eyeball and orbital tissues, right eye, initial encounter; E11.649 Type 2 diabetes mellitus with hypoglycemia without coma; I10 Essential (primary) hypertension; E78.5 Hyperlipidemia, unspecified; I48.91 Unspecified atrial fibrillation; E66.9 Obesity, unspecified; Z68.39 Body mass index [BMI] 39.0-39.9, adult; Z88.1 Allergy status to other antibiotic agents; Z88.2 Allergy status to sulfonamides; Z90.49 Acquired absence of other specified parts of digestive tract; W18.39XA Other fall on same level, initial encounter; Y93.89 Activity, other specified; Y92.89 Other specified places as the place of occurrence of the external cause; Y99.8 Other external cause status